=== PATIENT | male | born 1960 | race Caucasian/White ===

== ENCOUNTER 2018-05-27 12:33 | Inpatient (IN) | payer SELFPAY ==
[~2018-05-27] VITALS: Ht 175.3 cm; Wt 80.3 kg
[2018-05-27] MEDS ORDERED: LORazepam 2 MG/ML VIAL IVP ONE (13:15)
[2018-05-27] MEDS ORDERED: SODIUM CHLORIDE 0.9% 2,000 ML IV ONE (13:15)
[2018-05-27 13:16] LABS: BASOPHILS % (AUTO) 0.6 % (0.0-2.0); EOSINOPHILS % (AUTO) 0.1 % (1.0-6.0); LYMPHOCYTES # (AUTO) 1.6 K/uL (1.0-4.8); LYMPHOCYTES % (AUTO) 13.4 % (22.0-44.0); MEAN CORPUSCULAR HEMOGLOBIN 35.3 pg (26.0-34.0); MEAN CORPUSCULAR HGB CONC 34.7 G/dL (31.0-37.0); MEAN CORPUSCULAR VOLUME 102 fL (80-100); MONOCYTES # (AUTO) 0.9 K/uL (0.1-1.0); MONOCYTES % (AUTO) 7.3 % (2.0-9.0); NEUTROPHILS # (AUTO) 9.5 K/uL (1.8-7.7); NEUTROPHILS % (AUTO) 78.6 % (40.0-70.0); PLATELET COUNT (AUTO) 318 K/uL (150-450); RED BLOOD CELL COUNT(AUTO) 5.57 MIL/uL (4.50-5.90); RED CELL DISTRIBUTION WIDTH 15.1 % (11.5-14.5)
[2018-05-27 13:26] LABS: HEMATOCRIT 56.7 % (41-53); HEMOGLOBIN 19.7 g/dL (13.5-17.5)
[2018-05-27 13:52] LABS: LACTIC ACID 7.1 mmol/L (0.4-2.0)
[2018-05-27 14:47] LABS: ANION GAP 25 mmol/L (8-16); CALCIUM, TOTAL 8.5 mg/dL (8.8-10.5); CARBON DIOXIDE 14 mmol/L (22-29); CHLORIDE 99 mmol/L (98-107); GLOMERULAR FILTR. RATE CALC > 60 mL/min (>60); GLUCOSE,RANDOM 109 mg/dL (70-110); POTASSIUM 4.2 mmol/L (3.5-5.1); SODIUM SERUM 138 mmol/L (136-145); UREA NITROGEN, BLOOD 20 mg/dL (7-18)
[2018-05-27 14:50] LABS: ALANINE AMINOTRANSFERASE 115 U/L (12-78); ALBUMIN 4.2 g/dL (3.4-5.0); ALKALINE PHOSPHATASE 107 U/L (46-116); ASPARTATE AMINOTRANSFERASE 189 U/L (15-37); BILIRUBIN,TOTAL 1.1 mg/dL (0.1-1.0); LIPASE 300 U/L (73-393); TOTAL PROTEIN, SERUM 8.7 g/dL (6.4-8.2); TRIGLYCERIDES 730 mg/dL (15-150)
[2018-05-27] MEDS ORDERED: FentaNYL CITRATE-PF 100 MCG/2 ML VIAL IVP ONE (15:00)
[2018-05-27] MEDS ORDERED: 0.9% SODIUM CHLORIDE 10 ML SYRINGE IVP PRN ×2 (16:15→18:30)
[2018-05-27] MEDS ORDERED: ONDANSETRON HCL 4 MG/2 ML VIAL IVP PRN (16:15)
[2018-05-27] MEDS ORDERED: ACETAMINOPHEN 325 MG TABLET PO PRN (16:15)
[2018-05-27] MEDS ORDERED: HYDROmorphone 2 MG/ML SYRINGE IVP PRN (16:15)
[2018-05-27 16:49] LABS: APPEARANCE,URINE CLEAR (CLEAR); BILIRUBIN,URINE NEGATIVE (NEGATIVE); GLUCOSE, URINE (UA) NEGATIVE (NEGATIVE); KETONES,URINE 15 mg/dL (NEGATIVE); LEUKOCYTE ESTERASE ,URINE NEGATIVE (NEGATIVE); NITRATE,URINE NEGATIVE (NEGATIVE); OCCULT BLOOD,URINE NEGATIVE (NEGATIVE); PROTEIN,URINE POS 1+ (NEGATIVE); UROBILINOGEN,URINE 0.2 mg/dL (<=1.0)
[2018-05-27 16:53] LABS: AMPHET/METH SCREEN,URINE NEGATIVE (NEGATIVE); BARBITURATE SCREEN, URINE NEGATIVE (NEGATIVE); BENZODIAZEPINES SCREEN,URINE NEGATIVE (NEGATIVE); CANNABINOID SCREEN,URINE POSITIVE (NEGATIVE); COCAINE SCREEN,URINE NEGATIVE (NEGATIVE); METHADONE SCREEN, URINE NEGATIVE (NEGATIVE); OPIATE SCREEN,URINE POSITIVE (NEGATIVE)
[2018-05-27 16:54] LABS: PHENCYCLIDINE SCREEN,URINE NEGATIVE (NEGATIVE)
[2018-05-27 16:56] LABS: BACTERIA,URINE None Seen /HPF (None Seen); RBC,URINE 0-2 /HPF (0-2); SQUAMOUS EPITHELIAL CELL,UR Rare /LPF (None Seen); WBC,URINE 0-2 /HPF (0-5)
[2018-05-27 18:00] VITALS: BP 155/95
[2018-05-27] MEDS ORDERED: MAGNESIUM SULFATE 2 GM, MVI, ADULT NO.1 WITH VIT K 10 ML, THIAMINE HCL 100 MG, FOLIC AC... IV ONE ×5 (18:30)
[2018-05-27] MEDS: ENOXAPARIN SODIUM 40 MG/0.4 ML PF SYRINGE SQ SCH (18:30)
[2018-05-27] MEDS ORDERED: MAGNESIUM SULFATE 2 GM/WATER 50 ML IV PRN (18:45)
[2018-05-27] MEDS ORDERED: MAGNESIUM SULFATE 4 GM/WATER 100 ML IV PRN (18:45)
[2018-05-27] MEDS ORDERED: MAGNESIUM OXIDE 400 MG TABLET PO PRN (18:45)
[2018-05-27] MEDS ORDERED: POTASSIUM CHLORIDE 20 MEQ ER TABLET PO PRN (18:45)
[2018-05-27] MEDS ORDERED: POTASSIUM CHL 10 MEQ/WATER 50 ML IV PRN (18:45)
[2018-05-27 20:21] VITALS: BP 173/100
[2018-05-27] MEDS: PANTOPRAZOLE SODIUM 40 MG/VIAL IVP SCH (21:22)
[2018-05-27] MEDS: HYDROmorphone 2 MG/ML SYRINGE IVP PRN (21:22)
[2018-05-27 21:50] VITALS: BP 155/101
[2018-05-27 23:26] VITALS: BP 174/99
[2018-05-27] MEDS: AmLODIPine BESYLATE 5 MG TABLET PO SCH (23:36)
[2018-05-28] VITALS (7 sets, daily range): BP systolic 138–173; BP diastolic 90–101
[2018-05-28] MEDS: HYDROmorphone 2 MG/ML SYRINGE IVP PRN ×6 (01:35→22:19)
[2018-05-28] MEDS ORDERED: CloNIDine HCL 0.1 MG TABLET PO PRN (05:00)
[2018-05-28] MEDS: ONDANSETRON HCL 4 MG/2 ML VIAL IVP PRN (05:13)
[2018-05-28 06:51] LABS: AMYLASE 91 U/L (25-115); ANION GAP 10 mmol/L (8-16); CALCIUM, TOTAL 7.8 mg/dL (8.8-10.5); CARBON DIOXIDE 25 mmol/L (22-29); CHLORIDE 101 mmol/L (98-107); GLOMERULAR FILTR. RATE CALC > 60 mL/min (>60); GLUCOSE,RANDOM 118 mg/dL (70-110); POTASSIUM 3.6 mmol/L (3.5-5.1); SODIUM SERUM 136 mmol/L (136-145); UREA NITROGEN, BLOOD 11 mg/dL (7-18)
[2018-05-28 07:56] LABS: BASOPHILS % (AUTO) 0.5 % (0.0-2.0); EOSINOPHILS % (AUTO) 0.2 % (1.0-6.0); HEMATOCRIT 49.9 % (41-53); HEMOGLOBIN 17.4 g/dL (13.5-17.5); LYMPHOCYTES # (AUTO) 0.8 K/uL (1.0-4.8); LYMPHOCYTES % (AUTO) 8.8 % (22.0-44.0); MEAN CORPUSCULAR HEMOGLOBIN 35.6 pg (26.0-34.0); MEAN CORPUSCULAR HGB CONC 34.8 G/dL (31.0-37.0); MEAN CORPUSCULAR VOLUME 102 fL (80-100); MONOCYTES # (AUTO) 1.1 K/uL (0.1-1.0); MONOCYTES % (AUTO) 11.2 % (2.0-9.0); NEUTROPHILS # (AUTO) 7.5 K/uL (1.8-7.7); NEUTROPHILS % (AUTO) 79.3 % (40.0-70.0); PLATELET COUNT (AUTO) 218 K/uL (150-450); RED BLOOD CELL COUNT(AUTO) 4.88 MIL/uL (4.50-5.90); RED CELL DISTRIBUTION WIDTH 14.5 % (11.5-14.5)
[2018-05-28] MEDS: AmLODIPine BESYLATE 5 MG TABLET PO SCH (08:22)
[2018-05-28] MEDS: PANTOPRAZOLE SODIUM 40 MG/VIAL IVP SCH ×2 (08:22→20:29)
[2018-05-28] MEDS: ENOXAPARIN SODIUM 40 MG/0.4 ML PF SYRINGE SQ SCH (08:23)
[2018-05-28] MEDS ORDERED: SODIUM CHLORIDE 0.9% 250 ML IV ONE (09:22)
[2018-05-28] MEDS: MAGNESIUM SULFATE 2 GM, MVI, ADULT NO.1 WITH VIT K 10 ML, THIAMINE HCL 100 MG, FOLIC AC... IV SCH ×5 (11:10)
[2018-05-29] VITALS (7 sets, daily range): BP systolic 128–150; BP diastolic 89–95
[2018-05-29] MEDS: MAGNESIUM SULFATE 2 GM, MVI, ADULT NO.1 WITH VIT K 10 ML, THIAMINE HCL 100 MG, FOLIC AC... IV SCH ×5 (02:17)
[2018-05-29] MEDS: HYDROmorphone 2 MG/ML SYRINGE IVP PRN ×6 (02:18→23:14)
[2018-05-29] MEDS: ENOXAPARIN SODIUM 40 MG/0.4 ML PF SYRINGE SQ SCH ×2 (09:00→09:31)
[2018-05-29] MEDS: AmLODIPine BESYLATE 5 MG TABLET PO SCH (09:31)
[2018-05-29] MEDS: ONDANSETRON HCL 4 MG/2 ML VIAL IVP PRN (09:31)
[2018-05-29] MEDS: PANTOPRAZOLE SODIUM 40 MG/VIAL IVP SCH ×2 (09:32→20:23)
[2018-05-29] MEDS: HYDROCODONE/ACETAMINOPHEN 10-325 MG TABLET PO PRN ×2 (12:01→22:09)
[2018-05-29] MEDS ORDERED: LORazepam 2 MG/ML VIAL IVP ONE (16:15)
[2018-05-30 04:56] VITALS: BP 128/91
[2018-05-30] MEDS: HYDROmorphone 2 MG/ML SYRINGE IVP PRN ×3 (05:17→11:20)
[2018-05-30 06:07] LABS: BASOPHILS % (AUTO) 0.5 % (0.0-2.0); EOSINOPHILS % (AUTO) 1.7 % (1.0-6.0); HEMATOCRIT 46.3 % (41-53); HEMOGLOBIN 16.3 g/dL (13.5-17.5); LYMPHOCYTES # (AUTO) 1.3 K/uL (1.0-4.8); MEAN CORPUSCULAR HEMOGLOBIN 35.7 pg (26.0-34.0); MEAN CORPUSCULAR HGB CONC 35.3 G/dL (31.0-37.0); MEAN CORPUSCULAR VOLUME 101 fL (80-100); MONOCYTES # (AUTO) 0.9 K/uL (0.1-1.0); MONOCYTES % (AUTO) 12.6 % (2.0-9.0); NEUTROPHILS # (AUTO) 4.6 K/uL (1.8-7.7); NEUTROPHILS % (AUTO) 66.2 % (40.0-70.0); PLATELET COUNT (AUTO) 197 K/uL (150-450); RED BLOOD CELL COUNT(AUTO) 4.58 MIL/uL (4.50-5.90); RED CELL DISTRIBUTION WIDTH 14.5 % (11.5-14.5)
[2018-05-30 06:13] LABS: INR 0.9 (0.9-1.1); PROTHROMBIN TIME 9.7 SEC (9.4-11.6)
[2018-05-30 06:53] LABS: ALANINE AMINOTRANSFERASE 42 U/L (12-78); ALBUMIN 3.1 g/dL (3.4-5.0); ALKALINE PHOSPHATASE 97 U/L (46-116); ANION GAP 9 mmol/L (8-16); ASPARTATE AMINOTRANSFERASE 32 U/L (15-37); BILIRUBIN,TOTAL 2.9 mg/dL (0.1-1.0); CALCIUM, TOTAL 8.3 mg/dL (8.8-10.5); CARBON DIOXIDE 25 mmol/L (22-29); CHLORIDE 96 mmol/L (98-107); CREATININE 0.68 mg/dL (0.60-1.30); GLOMERULAR FILTR. RATE CALC > 60 mL/min (>60); GLUCOSE,RANDOM 95 mg/dL (70-110); POTASSIUM 3.6 mmol/L (3.5-5.1); SODIUM SERUM 130 mmol/L (136-145); TOTAL PROTEIN, SERUM 7.5 g/dL (6.4-8.2); UREA NITROGEN, BLOOD 8 mg/dL (7-18)
[2018-05-30 07:40] VITALS: BP_SYST 137; BP_DIAS 9; BP_DIAS 96
[2018-05-30] MEDS ORDERED: RINGERS SOLUTION,LACTATED 1,000 ML IV ONE (08:00)
[2018-05-30] MEDS: PANTOPRAZOLE SODIUM 40 MG/VIAL IVP SCH ×2 (09:00→20:08)
[2018-05-30] MEDS: ENOXAPARIN SODIUM 40 MG/0.4 ML PF SYRINGE SQ SCH (09:00)
[2018-05-30] MEDS: AmLODIPine BESYLATE 5 MG TABLET PO SCH (09:00)
[2018-05-30] MEDS ORDERED: BUPIVACAINE 0.25%/EPI 1:200,000/PF 10 ML VIAL ONE (09:18)
[2018-05-30] MEDS ORDERED: SODIUM CL IRRIG SOLN BAG 3,000 ML IRRIG ONE (09:19)
[2018-05-30] MEDS ORDERED: IOHEXOL 240 MG/ML 20 ML VIAL ONE ×2 (09:20)
[2018-05-30] MEDS ORDERED: ACETAMINOPHEN 1000 MG/ISO-OSM 100 ML IV ONE (09:27)
[2018-05-30] MEDS ORDERED: LIDOCAINE/PF 2% 5 ML VIAL ONE (09:28)
[2018-05-30] MEDS ORDERED: KETAMINE HCL 50 MG/ML 10 ML VIAL ONE (09:28)
[2018-05-30] MEDS ORDERED: CLINDAMYCIN PHOS 150 MG/ML 4 ML VIAL ONE (09:53)
[2018-05-30] MEDS ORDERED: SODIUM CHLORIDE 0.9% 0 ML ONE (09:53)
[2018-05-30] MEDS: FentaNYL CITRATE-PF 100 MCG/2 ML VIAL IVP PRN ×2 (11:00→11:05)
[2018-05-30] MEDS ORDERED: MEPERIDINE-PF 25 MG/ML VIAL ONE (11:01)
[2018-05-30] MEDS ORDERED: FentaNYL CITRATE-PF 100 MCG/2 ML VIAL ONE (11:01)
[2018-05-30] MEDS ORDERED: MEPERIDINE-PF 25 MG/ML VIAL IVP PRN (11:15)
[2018-05-30] MEDS ORDERED: HYDROmorphone 2 MG/ML SYRINGE IVP PRN (11:15)
[2018-05-30] MEDS ORDERED: OxyCODONE HCL/ACETAMINOPHEN 10-325 MG TABLET PO PRN (11:15)
[2018-05-30] MEDS ORDERED: PROPOFOL 1% 20 ML VIAL IVP ONE (12:00)
[2018-05-30] MEDS ORDERED: KETOROLAC TROMETHAMINE 60 MG/2 ML VIAL IM ONE (12:00)
[2018-05-30] MEDS ORDERED: DEXAMETHASONE SOD PHOS 4 MG/ML VIAL IVP ONE (12:00)
[2018-05-30] MEDS ORDERED: ROCURONIUM BROMIDE 10 MG/ML 5 ML VIAL IVP ONE (12:00)
[2018-05-30] MEDS ORDERED: ONDANSETRON HCL 4 MG/2 ML VIAL IVP ONE (12:00)
[2018-05-30] MEDS ORDERED: MIDAZOLAM HCL 2 MG/2 ML VIAL IVP ONE (12:00)
[2018-05-30] MEDS ORDERED: LIDOCAINE/PF 2% 5 ML VIAL INJ ONE (12:00)
[2018-05-30] MEDS ORDERED: GLYCOPYRROLATE 0.2 MG/ML VIAL IM ONE (12:00)
[2018-05-30] MEDS ORDERED: NEOSTIGMINE METHYLSULFATE 1 MG/ML 10 ML VIAL IVP ONE (12:00)
[2018-05-30] MEDS ORDERED: SUCCINYLCHOLINE CHLORIDE 20 MG/ML 10 ML VIAL IVP ONE (12:00)
[2018-05-30] MEDS: ACETAMINOPHEN 500 MG TABLET PO SCH ×3 (12:32→23:41)
[2018-05-30] MEDS: KETOROLAC TROMETHAMINE 15 MG/ML VIAL IVP SCH ×3 (12:32→23:41)
[2018-05-30 16:23] VITALS: BP 129/81
[2018-05-30 19:33] VITALS: BP 144/83
[2018-05-30 23:41] VITALS: BP 144/95
[2018-05-31 06:01] VITALS: BP 149/90
[2018-05-31] MEDS: KETOROLAC TROMETHAMINE 15 MG/ML VIAL IVP SCH ×2 (06:04→12:30)
[2018-05-31] MEDS: ACETAMINOPHEN 500 MG TABLET PO SCH ×2 (06:05→11:15)
[2018-05-31 06:31] LABS: BASOPHILS % (AUTO) 0.2 % (0.0-2.0); EOSINOPHILS % (AUTO) 0.1 % (1.0-6.0); HEMATOCRIT 43.3 % (41-53); HEMOGLOBIN 15.3 g/dL (13.5-17.5); LYMPHOCYTES # (AUTO) 0.9 K/uL (1.0-4.8); LYMPHOCYTES % (AUTO) 11.3 % (22.0-44.0); MEAN CORPUSCULAR HEMOGLOBIN 36.4 pg (26.0-34.0); MEAN CORPUSCULAR HGB CONC 35.3 G/dL (31.0-37.0); MEAN CORPUSCULAR VOLUME 103 fL (80-100); MONOCYTES % (AUTO) 13.6 % (2.0-9.0); NEUTROPHILS # (AUTO) 5.6 K/uL (1.8-7.7); NEUTROPHILS % (AUTO) 74.8 % (40.0-70.0); PLATELET COUNT (AUTO) 196 K/uL (150-450); RED CELL DISTRIBUTION WIDTH 14.5 % (11.5-14.5)
[2018-05-31 06:50] LABS: ALANINE AMINOTRANSFERASE 43 U/L (12-78); ALBUMIN 3.1 g/dL (3.4-5.0); ALKALINE PHOSPHATASE 104 U/L (46-116); ANION GAP 5 mmol/L (8-16); ASPARTATE AMINOTRANSFERASE 33 U/L (15-37); BILIRUBIN,TOTAL 1.5 mg/dL (0.1-1.0); CALCIUM, TOTAL 8.4 mg/dL (8.8-10.5); CARBON DIOXIDE 28 mmol/L (22-29); CHLORIDE 97 mmol/L (98-107); CREATININE 0.86 mg/dL (0.60-1.30); GLOMERULAR FILTR. RATE CALC > 60 mL/min (>60); GLUCOSE,RANDOM 149 mg/dL (70-110); LIPASE 505 U/L (73-393); SODIUM SERUM 130 mmol/L (136-145); TOTAL PROTEIN, SERUM 7.1 g/dL (6.4-8.2); UREA NITROGEN, BLOOD 11 mg/dL (7-18)
[2018-05-31 08:08] VITALS: BP 149/87
[2018-05-31] MEDS: PANTOPRAZOLE SODIUM 40 MG/VIAL IVP SCH (09:08)
[2018-05-31] MEDS: AmLODIPine BESYLATE 5 MG TABLET PO SCH (09:08)
[2018-05-31] MEDS: ENOXAPARIN SODIUM 40 MG/0.4 ML PF SYRINGE SQ SCH (09:09)
[2018-05-31] MEDS ORDERED: HYDR-4061 PO (10:12)
[2018-05-31 12:00] VITALS: BP 155/95
[2018-05-31 15:37] VITALS: BP 150/91
== END 2018-05-31 16:00 | disposition home or self-care (01) | DRG 418 ==
LOC: EMS 12:34 → 6N 17:08
PROVIDERS: ADMIT Internal Medicine; ATTEND Internal Medicine
PROC: BF181ZZ Fluoroscopy of Pancreatic Ducts using Low Osmolar Contrast (ICD-10-PCS; 2018-05-30)
PROC: 0FT44ZZ Resection of Gallbladder, Percutaneous Endoscopic Approach (ICD-10-PCS; principal; 2018-05-30 09:00)
DX: K85.10 Biliary acute pancreatitis without necrosis or infection (principal); K86.3 Pseudocyst of pancreas; F10.10 Alcohol abuse, uncomplicated; Z88.0 Allergy status to penicillin; Z88.5 Allergy status to narcotic agent; E78.1 Pure hyperglyceridemia; Y90.9 Presence of alcohol in blood, level not specified; K29.20 Alcoholic gastritis without bleeding; F40.240 Claustrophobia; K66.0 Peritoneal adhesions (postprocedural) (postinfection)
CPT/HCPCS: 74176; 76700; 82247; 82248; 83605; 83735; 84478; 86850; 86900; 86901; 88304; 93005; 96361; 96374; 96375; C9113; G0238; G0378; G0480; J0131; J0330; J1100; J1170; J1650; J1885; J2060; J2175; J2250; J2405; J2704; J3010; J3411; J3475; J3490; J7030; J7050; J7120; Q9966

== ENCOUNTER 2021-02-15 09:18 | Inpatient (IN) | payer MEDICAID, OTHER ==
[~2021-02-15] VITALS: Ht 172.7 cm; Wt 75.7 kg
[2021-02-15] MEDS ORDERED: OCTREOTIDE ACETATE 100 MCG/ML VIAL IVP ONE (09:30)
[2021-02-15] MEDS ORDERED: PANTOPRAZOLE SODIUM 40 MG/VIAL IVP ONE (09:30)
[2021-02-15] MEDS ORDERED: LEVOFLOXACIN 750 MG/D5% WATER 150 ML IV ONE (09:30)
[2021-02-15] MEDS ORDERED: MORPHINE SULFATE 2 MG/ML SYRINGE IVP ONE (09:45)
[2021-02-15 09:55] LABS: BASOPHILS % (AUTO) 1.1 % (0.0-2.0); EOSINOPHILS % (AUTO) 0.6 % (1.0-6.0); HEMATOCRIT 28.6 % (41-53); HEMOGLOBIN 9.7 g/dL (13.5-17.5); LYMPHOCYTES # (AUTO) 3.5 K/uL (1.0-4.8); LYMPHOCYTES % (AUTO) 23.4 % (22.0-44.0); MEAN CORPUSCULAR HEMOGLOBIN 38.9 pg (26.0-34.0); MEAN CORPUSCULAR HGB CONC 33.9 G/dL (31.0-37.0); MEAN CORPUSCULAR VOLUME 115 fL (80-100); MONOCYTES # (AUTO) 1.3 K/uL (0.1-1.0); NEUTROPHILS # (AUTO) 9.8 K/uL (1.8-7.7); NEUTROPHILS % (AUTO) 65.9 % (40.0-70.0); PLATELET COUNT (AUTO) 206 K/uL (150-450); RED CELL DISTRIBUTION WIDTH 15.5 % (11.5-14.5)
[2021-02-15] MEDS: OCTREOTIDE ACETATE 500 MCG in DEXTROSE 5%-WATER 97.5 ML IV SCH ×2 (09:58→20:18)
[2021-02-15 10:10] LABS: INR 1.5 (0.9-1.1); PROTHROMBIN TIME 15.5 SEC (9.4-11.6)
[2021-02-15 10:11] LABS: ANION GAP 12 mmol/L (8-16); CALCIUM, TOTAL 8.4 mg/dL (8.8-10.5); CARBON DIOXIDE 26 mmol/L (22-29); CHLORIDE 102 mmol/L (98-107); CREATININE 0.64 mg/dL (0.60-1.30); GLOMERULAR FILTR. RATE CALC > 60 mL/min (>60); GLUCOSE,RANDOM 142 mg/dL (70-110); POTASSIUM 4.1 mmol/L (3.5-5.1); SODIUM SERUM 140 mmol/L (136-145); UREA NITROGEN, BLOOD 16 mg/dL (7-18)
[2021-02-15 10:17] LABS: ALANINE AMINOTRANSFERASE 26 U/L (12-78); ALBUMIN 2.3 g/dL (3.4-5.0); ALKALINE PHOSPHATASE 272 U/L (46-116); ASPARTATE AMINOTRANSFERASE 175 U/L (15-37); BILIRUBIN,TOTAL 6.8 mg/dL (0.1-1.0); CREATINE KINASE, TOTAL ONLY 23 U/L (39-308); LIPASE 64 U/L (73-393); PHOSPHORUS 3.3 mg/dL (2.5-4.9); TOTAL PROTEIN, SERUM 9.4 g/dL (6.4-8.2)
[2021-02-15 10:22] LABS: TROPONIN I < 0.02 ng/mL (0.00-0.05)
[2021-02-15 10:23] LABS: AMMONIA < 10 umol/L (11-32)
[2021-02-15 10:27] LABS: B-TYPE NATRIURETIC PEPTIDE 74 pg/mL (0-100)
[2021-02-15] MEDS: PANTOPRAZOLE SODIUM 80 MG in SODIUM CHLORIDE 0.9% 100 ML IV SCH ×2 (10:27→20:18)
[2021-02-15] MEDS ORDERED: ALBUTEROL SULFATE 2.5 MG/0.5 ML NEB SOLUTION NEB PRN (11:30)
[2021-02-15] MEDS ORDERED: ACETAMINOPHEN 325 MG TABLET PO PRN (11:30)
[2021-02-15] MEDS ORDERED: ONDANSETRON HCL 4 MG/2 ML VIAL IVP PRN (11:30)
[2021-02-15] MEDS ORDERED: 0.9% SODIUM CHLORIDE 10 ML SYRINGE IVP PRN (11:30)
[2021-02-15] MEDS ORDERED: IPRATROPIUM BROMIDE 0.5 MG/2.5 ML NEB SOLUTION NEB PRN (11:30)
[2021-02-15] MEDS: 1: MAGNESIUM SULFATE 2 GM, MVI, ADULT NO.1 WITH VIT K 10 ML, THIAMINE 100 MG, FOLIC ACID IV SCH ×5 (12:40)
[2021-02-15 13:53] LABS: COVID AG,FIA SOURCE NASOPHARYNGEAL
[2021-02-15 14:19] LABS: HEMATOCRIT 24.7 % (41-53); HEMOGLOBIN 8.6 g/dL (13.5-17.5)
[2021-02-15 14:21] LABS: APPEARANCE,URINE CLOUDY (CLEAR); GLUCOSE, URINE (UA) NEGATIVE (NEGATIVE); KETONES,URINE TRACE mg/dL (NEGATIVE); LEUKOCYTE ESTERASE ,URINE SMALL (NEGATIVE); OCCULT BLOOD,URINE NEGATIVE (NEGATIVE); PH,URINE 5.5 (5.0-8.0); PROTEIN,URINE TRACE (NEGATIVE)
[2021-02-15 14:26] LABS: AMPHET/METH SCREEN,URINE NEGATIVE (NEGATIVE); BARBITURATE SCREEN, URINE NEGATIVE (NEGATIVE); BENZODIAZEPINES SCREEN,URINE NEGATIVE (NEGATIVE); CANNABINOID SCREEN,URINE NEGATIVE (NEGATIVE); COCAINE SCREEN,URINE NEGATIVE (NEGATIVE); METHADONE SCREEN, URINE NEGATIVE (NEGATIVE); OPIATE SCREEN,URINE POSITIVE (NEGATIVE)
[2021-02-15 14:30] LABS: PHENCYCLIDINE SCREEN,URINE NEGATIVE (NEGATIVE)
[2021-02-15 15:10] LABS: BILIRUBIN,URINE PRELIM. POSITIVE (NEGATIVE)
[2021-02-15 15:28] LABS: BACTERIA,URINE Few /HPF (None Seen); NITRATE,URINE NEGATIVE (NEGATIVE); RBC,URINE 0-2 /HPF (0-2); SQUAMOUS EPITHELIAL CELL,UR Rare /LPF (None Seen)
[2021-02-15 20:10] LABS: HEMOGLOBIN 8.1 g/dL (13.5-17.5)
[2021-02-15] MEDS: LORazepam 2 MG/ML VIAL IVP PRN (20:53)
[2021-02-15] MEDS: CefTRIAXone 1 GM/DEXTROSE 50 ML IV SCH (21:17)
[2021-02-15] MEDS ORDERED: PHYTONADIONE 10 MG/1 ML AMP SQ ONE (22:15)
[2021-02-15 23:43] VITALS: BP 134/78
[2021-02-15] MEDS ORDERED: DEXTROSE 5%-0.45% SODIUM CHL 1,000 ML IV PRN (23:55)
[2021-02-16] VITALS (13 sets, daily range): BP systolic 112–141; BP diastolic 68–83
[2021-02-16] MEDS ORDERED: SODIUM CHLORIDE 0.9% 250 ML IV ONE (03:06)
[2021-02-16] MEDS: LORazepam 2 MG/ML VIAL IVP PRN (03:53)
[2021-02-16] MEDS: PANTOPRAZOLE SODIUM 80 MG in SODIUM CHLORIDE 0.9% 100 ML IV SCH ×2 (06:06→17:02)
[2021-02-16] MEDS: OCTREOTIDE ACETATE 500 MCG in DEXTROSE 5%-WATER 97.5 ML IV SCH ×2 (06:07→17:02)
[2021-02-16] MEDS ORDERED: SODIUM CHLORIDE 0.9% 1,000 ML ONE ×3 (06:08→21:12)
[2021-02-16 06:52] LABS: BASOPHILS % (AUTO) 1.2 % (0.0-2.0); HEMATOCRIT 21.8 % (41-53); HEMOGLOBIN 7.6 g/dL (13.5-17.5); LYMPHOCYTES % (AUTO) 18.7 % (22.0-44.0); MEAN CORPUSCULAR HEMOGLOBIN 40.2 pg (26.0-34.0); MEAN CORPUSCULAR HGB CONC 34.9 G/dL (31.0-37.0); MEAN CORPUSCULAR VOLUME 115 fL (80-100); MONOCYTES % (AUTO) 9.1 % (2.0-9.0); NEUTROPHILS # (AUTO) 7.4 K/uL (1.8-7.7); PLATELET COUNT (AUTO) 163 K/uL (150-450); RED BLOOD CELL COUNT(AUTO) 1.89 MIL/uL (4.50-5.90); RED CELL DISTRIBUTION WIDTH 15.5 % (11.5-14.5)
[2021-02-16 07:13] LABS: ALANINE AMINOTRANSFERASE 22 U/L (12-78); ALBUMIN 1.9 g/dL (3.4-5.0); ALKALINE PHOSPHATASE 203 U/L (46-116); ANION GAP 6 mmol/L (8-16); ASPARTATE AMINOTRANSFERASE 141 U/L (15-37); CALCIUM, TOTAL 7.6 mg/dL (8.8-10.5); CARBON DIOXIDE 27 mmol/L (22-29); CHLORIDE 104 mmol/L (98-107); CREATININE 0.78 mg/dL (0.60-1.30); FREE T4 (FREE THYROXINE) 1.41 ng/dL (0.76-1.46); GLOMERULAR FILTR. RATE CALC > 60 mL/min (>60); GLUCOSE,RANDOM 145 mg/dL (70-110); POTASSIUM 4.4 mmol/L (3.5-5.1); SODIUM SERUM 137 mmol/L (136-145); THYROID STIMULATING HORMONE 0.95 uIU/mL (0.36-3.74); TOTAL PROTEIN, SERUM 7.7 g/dL (6.4-8.2); UREA NITROGEN, BLOOD 23 mg/dL (7-18)
[2021-02-16] MEDS ORDERED: PROPOFOL 1% 20 ML VIAL IVP ONE (12:00)
[2021-02-16] MEDS: 1: MAGNESIUM SULFATE 2 GM, MVI, ADULT NO.1 WITH VIT K 10 ML, THIAMINE 100 MG, FOLIC ACID IV SCH ×5 (14:23)
[2021-02-16] MEDS ORDERED: EPINEPHrine 1:10,000 [1 MG/10 ML] SYRINGE ONE (14:29)
[2021-02-16 15:43] LABS: HEMATOCRIT 22.5 % (41-53); HEMOGLOBIN 7.8 g/dL (13.5-17.5)
[2021-02-16 16:06] LABS: INR 1.6 (0.9-1.1); PROTHROMBIN TIME 16.8 SEC (9.4-11.6)
[2021-02-16 20:28] LABS: HEMATOCRIT 21.2 % (41-53); HEMOGLOBIN 7.3 g/dL (13.5-17.5)
[2021-02-16] MEDS: CefTRIAXone 1 GM/DEXTROSE 50 ML IV SCH (21:10)
[2021-02-16] MEDS: TraMADol HCL 50 MG TABLET PO PRN (22:51)
[2021-02-16] MEDS: MELATONIN 5 MG TABLET PO PRN (22:51)
[2021-02-17 00:40] VITALS: BP 132/82
[2021-02-17] MEDS: OCTREOTIDE ACETATE 500 MCG in DEXTROSE 5%-WATER 97.5 ML IV SCH ×4 (01:35→22:18)
[2021-02-17] MEDS: PANTOPRAZOLE SODIUM 80 MG in SODIUM CHLORIDE 0.9% 100 ML IV SCH ×4 (01:35→22:18)
[2021-02-17 03:14] LABS: HEMATOCRIT 21.3 % (41-53); HEMOGLOBIN 7.4 g/dL (13.5-17.5)
[2021-02-17 03:39] LABS: HEMOGLOBIN A1C 4.9 % (3.8-5.6)
[2021-02-17 03:40] LABS: CHOL/HDL RATIO 7.4 (4.2-7.3)
[2021-02-17] MEDS: 1: MAGNESIUM SULFATE 2 GM, MVI, ADULT NO.1 WITH VIT K 10 ML, THIAMINE 100 MG, FOLIC ACID IV SCH ×10 (04:20→17:43)
[2021-02-17 04:40] VITALS: BP 123/65
[2021-02-17 08:15] VITALS: BP 125/73
[2021-02-17 11:36] LABS: HEMATOCRIT 21.8 % (41-53); HEMOGLOBIN 7.6 g/dL (13.5-17.5)
[2021-02-17 11:38] VITALS: BP 123/72
[2021-02-17 16:43] LABS: HEMATOCRIT 22.3 % (41-53); HEMOGLOBIN 7.6 g/dL (13.5-17.5)
[2021-02-17] MEDS: MELATONIN 5 MG TABLET PO PRN (20:13)
[2021-02-17] MEDS: TraMADol HCL 50 MG TABLET PO PRN (20:13)
[2021-02-17] MEDS: CefTRIAXone 1 GM/DEXTROSE 50 ML IV SCH (20:14)
[2021-02-17 20:27] VITALS: BP 133/88
[2021-02-17 23:35] LABS: HEMATOCRIT 20.8 % (41-53)
[2021-02-17 23:58] VITALS: BP 110/64
[2021-02-18 04:33] VITALS: BP 122/73
[2021-02-18] MEDS: 1: MAGNESIUM SULFATE 2 GM, MVI, ADULT NO.1 WITH VIT K 10 ML, THIAMINE 100 MG, FOLIC ACID IV SCH ×5 (05:51)
[2021-02-18] MEDS: OCTREOTIDE ACETATE 500 MCG in DEXTROSE 5%-WATER 97.5 ML IV SCH (07:56)
[2021-02-18 08:00] VITALS: BP 121/76
[2021-02-18 08:51] LABS: ANION GAP 8 mmol/L (8-16); CALCIUM, TOTAL 7.4 mg/dL (8.8-10.5); CARBON DIOXIDE 24 mmol/L (22-29); CHLORIDE 102 mmol/L (98-107); CREATININE 0.54 mg/dL (0.60-1.30); GLOMERULAR FILTR. RATE CALC > 60 mL/min (>60); GLUCOSE,RANDOM 127 mg/dL (70-110); POTASSIUM 3.8 mmol/L (3.5-5.1); SODIUM SERUM 134 mmol/L (136-145); UREA NITROGEN, BLOOD 9 mg/dL (7-18)
[2021-02-18 08:56] LABS: BASOPHILS % (AUTO) 1.2 % (0.0-2.0); EOSINOPHILS % (AUTO) 1.5 % (1.0-6.0); HEMATOCRIT 21.1 % (41-53); HEMOGLOBIN 7.2 g/dL (13.5-17.5); LYMPHOCYTES # (AUTO) 2.1 K/uL (1.0-4.8); LYMPHOCYTES % (AUTO) 18.1 % (22.0-44.0); MEAN CORPUSCULAR HEMOGLOBIN 39.7 pg (26.0-34.0); MEAN CORPUSCULAR HGB CONC 34.2 G/dL (31.0-37.0); MEAN CORPUSCULAR VOLUME 116 fL (80-100); MONOCYTES % (AUTO) 8.7 % (2.0-9.0); NEUTROPHILS # (AUTO) 8.2 K/uL (1.8-7.7); NEUTROPHILS % (AUTO) 70.5 % (40.0-70.0); PLATELET COUNT (AUTO) 145 K/uL (150-450); RED BLOOD CELL COUNT(AUTO) 1.82 MIL/uL (4.50-5.90); RED CELL DISTRIBUTION WIDTH 15.6 % (11.5-14.5)
[2021-02-18 08:58] LABS: INR 1.5 (0.9-1.1); PROTHROMBIN TIME 15.5 SEC (9.4-11.6)
[2021-02-18] MEDS ORDERED: PANTOPRAZOLE SODIUM 40 MG DR TABLET PO SCH (09:00)
[2021-02-18] MEDS: PANTOPRAZOLE SODIUM 80 MG in SODIUM CHLORIDE 0.9% 100 ML IV SCH (09:01)
[2021-02-18] MEDS ORDERED: PANT-31 PO (11:25)
[2021-02-18 12:27] VITALS: BP 128/80
== END 2021-02-18 13:20 | disposition home or self-care (01) | DRG 280 ==
LOC: EMS 09:21 → 5S 02-16 01:20
PROVIDERS: ADMIT Internal Medicine; ATTEND Internal Medicine
PROC: 30233L1 Transfusion of Nonautologous Fresh Plasma into Peripheral Vein, Percutaneous Approach (ICD-10-PCS; 2021-02-16)
PROC: 30233K1 Transfusion of Nonautologous Frozen Plasma into Peripheral Vein, Percutaneous Approach (ICD-10-PCS; 2021-02-16)
PROC: 0DB98ZX Excision of Duodenum, Via Natural or Artificial Opening Endoscopic, Diagnostic (ICD-10-PCS; principal; 2021-02-16 16:00)
DX: K70.30 Alcoholic cirrhosis of liver without ascites (principal); K70.40 Alcoholic hepatic failure without coma; K76.6 Portal hypertension; D62 Acute posthemorrhagic anemia; I85.10 Secondary esophageal varices without bleeding; R65.10 Systemic inflammatory response syndrome (SIRS) of non-infectious origin without acute organ dysfunction; K92.2 Gastrointestinal hemorrhage, unspecified; Z20.822 Contact with and (suspected) exposure to COVID-19; K31.89 Other diseases of stomach and duodenum; R79.89 Other specified abnormal findings of blood chemistry; F10.20 Alcohol dependence, uncomplicated; Y90.9 Presence of alcohol in blood, level not specified; R55 Syncope and collapse; Z88.0 Allergy status to penicillin; Z88.6 Allergy status to analgesic agent; Z90.49 Acquired absence of other specified parts of digestive tract
CPT/HCPCS: 71045; 76700; 80048; 80053; 80061; 81001; 82140; 82550; 83036; 83690; 83735; 83880; 84100; 84145; 84439; 84443; 84484; 85014; 85018; 85025; 85610; 85730; 86900; 86901; 86927; 87081; 87086; 88305; 93005; 99291; A9575; C9113; G0480; J0171; J0696; J1956; J2060; J2270; J2354; J2704; J3411; J3430; J3475; J3490; J7030; J7050; J7060; P9017; 36415-L1; 36415-TC

== ENCOUNTER 2021-03-21 06:58 | Emergency (ER) | payer OTHER ==
[~2021-03-21] VITALS: Ht 175.3 cm; Wt 72.7 kg
[~2021-03-21 06:58] MED LIST: PANT-31 PO
[2021-03-21] MEDS ORDERED: HYDROCODONE/ACETAMINOPHEN 5-325 MG TABLET PO ONE (08:00)
[2021-03-21 08:11] VITALS: BP 105/62
== END 2021-03-21 08:53 | disposition home or self-care (01) ==
LOC: EMS 07:00
DX: S90.32XA Contusion of left foot, initial encounter (principal); Z88.0 Allergy status to penicillin; Z88.6 Allergy status to analgesic agent; X58.XXXA Exposure to other specified factors, initial encounter; Y93.89 Activity, other specified; Y92.89 Other specified places as the place of occurrence of the external cause; Y99.8 Other external cause status
CPT/HCPCS: 99283

== ENCOUNTER 2021-04-07 16:35 | Emergency (ER) | payer OTHER ==
[~2021-04-07] VITALS: Ht 175.3 cm; Wt 77.3 kg
[2021-04-07] MEDS ORDERED: HYDROCODONE/ACETAMINOPHEN 5-325 MG TABLET PO ONE (21:00)
[2021-04-07] MEDS ORDERED: SULFAMETHOX/TRIMETH DS 800-160 MG/TABLET PO ONE (21:00)
[2021-04-07] MEDS ORDERED: CEPHALEXIN MONOHYDRATE 500 MG CAPSULE PO ONE (21:00)
[2021-04-07] MEDS ORDERED: LIDOCAINE 1% 10 ML VIAL ID ONE (21:00)
[2021-04-07 23:30] VITALS: BP 104/53
== END 2021-04-08 00:04 | disposition home or self-care (01) ==
LOC: EMS 16:35
DX: S90.32XA Contusion of left foot, initial encounter (principal); L02.612 Cutaneous abscess of left foot; Z88.0 Allergy status to penicillin; Z88.6 Allergy status to analgesic agent; X58.XXXA Exposure to other specified factors, initial encounter; Y93.89 Activity, other specified; Y92.89 Other specified places as the place of occurrence of the external cause; Y99.8 Other external cause status
CPT/HCPCS: 10060; 73630; 99284; J3490

== ENCOUNTER 2021-04-27 16:05 | Inpatient (IN) | payer OTHER ==
[~2021-04-27] VITALS: Ht 175.3 cm; Wt 84.5 kg
[2021-04-27 17:42] LABS: BASOPHILS % (AUTO) 0.9 % (0.0-2.0); EOSINOPHILS % (AUTO) 3.3 % (1.0-6.0); LYMPHOCYTES # (AUTO) 2.5 K/uL (1.0-4.8); LYMPHOCYTES % (AUTO) 22.7 % (22.0-44.0); MEAN CORPUSCULAR HEMOGLOBIN 34.6 pg (26.0-34.0); MEAN CORPUSCULAR HGB CONC 33.3 G/dL (31.0-37.0); MEAN CORPUSCULAR VOLUME 104 fL (80-100); MONOCYTES # (AUTO) 1.7 K/uL (0.1-1.0); MONOCYTES % (AUTO) 15.2 % (2.0-9.0); NEUTROPHILS # (AUTO) 6.5 K/uL (1.8-7.7); NEUTROPHILS % (AUTO) 57.9 % (40.0-70.0); PLATELET COUNT (AUTO) 323 K/uL (150-450); RED BLOOD CELL COUNT(AUTO) 1.82 MIL/uL (4.50-5.90); RED CELL DISTRIBUTION WIDTH 18.7 % (11.5-14.5)
[2021-04-27 17:45] LABS: HEMATOCRIT 18.9 % (41-53); HEMOGLOBIN 6.3 g/dL (13.5-17.5)
[2021-04-27 17:51] LABS: ANION GAP 17 mmol/L (8-16); CALCIUM, TOTAL 7.7 mg/dL (8.8-10.5); CARBON DIOXIDE 17 mmol/L (22-29); CHLORIDE 103 mmol/L (98-107); CREATININE 3.16 mg/dL (0.60-1.30); GLOMERULAR FILTR. RATE CALC 20 mL/min (>60); GLUCOSE,RANDOM 147 mg/dL (70-110); SODIUM SERUM 137 mmol/L (136-145); UREA NITROGEN, BLOOD 48 mg/dL (7-18)
[2021-04-27 17:53] LABS: INR 1.8 (0.9-1.1); PROTHROMBIN TIME 18.6 SEC (9.4-11.6)
[2021-04-27 17:57] LABS: ALANINE AMINOTRANSFERASE 38 U/L (12-78); ALBUMIN 2.1 g/dL (3.4-5.0); ALKALINE PHOSPHATASE 177 U/L (46-116); ASPARTATE AMINOTRANSFERASE 65 U/L (15-37); BILIRUBIN,TOTAL 3.1 mg/dL (0.1-1.0); LIPASE 989 U/L (73-393)
[2021-04-27 18:26] LABS: LACTIC ACID 3.7 mmol/L (0.4-2.0)
[2021-04-27] MEDS ORDERED: SODIUM CHLORIDE 0.9% 1,000 ML IV ONE ×3 (18:45→19:00)
[2021-04-27] MEDS ORDERED: CefTRIAXone 1 GM/DEXTROSE 50 ML IV ONE (19:00)
[2021-04-27] MEDS ORDERED: PANTOPRAZOLE SODIUM 80 MG in SODIUM CHLORIDE 0.9% 100 ML IV SCH (19:00)
[2021-04-27] MEDS ORDERED: OCTREOTIDE ACETATE 100 MCG/ML VIAL IVP ONE (19:00)
[2021-04-27] MEDS ORDERED: OCTREOTIDE ACETATE 500 MCG in DEXTROSE 5%-WATER 97.5 ML IV SCH (19:00)
[2021-04-27] MEDS ORDERED: MORPHINE SULFATE 2 MG/ML SYRINGE IVP ONE (19:00)
[2021-04-27] MEDS ORDERED: PANTOPRAZOLE SODIUM 40 MG/VIAL IVP ONE (19:00)
[2021-04-27] MEDS ORDERED: ONDANSETRON HCL 4 MG/2 ML VIAL IVP ONE (19:00)
[2021-04-27 19:33] LABS: CREATINE KINASE, TOTAL ONLY 36 U/L (39-308)
[2021-04-27] MEDS ORDERED: PHYTONADIONE 10 MG/1 ML AMP SQ ONE (20:00)
[2021-04-27 20:09] LABS: SPECIMENTYPE,BODY FLUID ASCITES
[2021-04-27] MEDS ORDERED: SODIUM CHLORIDE 0.9% 1,000 ML IV SCH (20:15)
[2021-04-27 20:24] LABS: B-TYPE NATRIURETIC PEPTIDE 208 pg/mL (0-100)
[2021-04-27 20:53] LABS: ACETAMINOPHEN < 2 mcg/mL (10-30)
[2021-04-27 21:05] LABS: APPEARANCE,SPUN,BODY FLUID CLEAR (CLEAR); APPEARANCE,UNSPUN,BODY FLUID HAZY (CLEAR); COLOR,BODY FLUID YELLOW (LT YELLOW)
[2021-04-27 21:06] LABS: BASOPHILS,BODY FLUID 0 %; EOSINOPHILS,BF (ANAL) 0 %; LYMPHOCYTES,BODY FLUID 5 %; MONOCYTES,BODY FLUID 0 %; NEUTROPHILS,BODY FLUID 95 %; TOTAL VOLUME,BODY FLUID 21.5 mL; WBC, BODY FLUID 30 /cu. mm.
[2021-04-27 21:52] LABS: COVID AG,FIA SOURCE NASAL SWAB
[2021-04-27] MEDS ORDERED: SODIUM BICARBONATE [ADULT] 8.4% 50 MEQ/50 ML SYRINGE IVP ONE (22:30)
[2021-04-27] MEDS ORDERED: ALBUMIN HUMAN 25%-25GM/100ML 100 ML IV ONE (22:30)
[2021-04-27 22:42] LABS: AMPHET/METH SCREEN,URINE NEGATIVE (NEGATIVE); BARBITURATE SCREEN, URINE NEGATIVE (NEGATIVE); BENZODIAZEPINES SCREEN,URINE NEGATIVE (NEGATIVE); CANNABINOID SCREEN,URINE NEGATIVE (NEGATIVE); COCAINE SCREEN,URINE NEGATIVE (NEGATIVE); METHADONE SCREEN, URINE NEGATIVE (NEGATIVE); OPIATE SCREEN,URINE POSITIVE (NEGATIVE)
[2021-04-27 22:43] LABS: PHENCYCLIDINE SCREEN,URINE NEGATIVE (NEGATIVE)
[2021-04-27 22:50] VITALS: BP 145/66
[2021-04-27] MEDS ORDERED: SODIUM CHLORIDE 0.9% 250 ML IV ONE (23:03)
[2021-04-27 23:30] VITALS: BP 120/68
[2021-04-27 23:33] LABS: APPEARANCE,URINE CLEAR (CLEAR); BILIRUBIN,URINE NEGATIVE (NEGATIVE); GLUCOSE, URINE (UA) NEGATIVE (NEGATIVE); KETONES,URINE NEGATIVE (NEGATIVE); LEUKOCYTE ESTERASE ,URINE NEGATIVE (NEGATIVE); NITRATE,URINE NEGATIVE (NEGATIVE); OCCULT BLOOD,URINE NEGATIVE (NEGATIVE); PH,URINE 5.5 (5.0-8.0); PROTEIN,URINE POS 1+ (NEGATIVE); UROBILINOGEN,URINE 0.2 mg/dL (<=1.0)
[2021-04-27 23:36] LABS: CHLORIDE,URINE RANDOM 65 mmol/L (55-125); CREATININE,URINE RANDOM 148.8 mg/dL (30.0-125.0); PROTEIN,URINE RANDOM 51 mg/dL (0-11.9); SODIUM,URINE RANDOM 32 mmol/l (20-110); UREA NITROGEN,URINE RANDOM 303 mg/dL (350-1000)
[2021-04-27 23:45] VITALS: BP 113/68
[2021-04-28] VITALS (18 sets, daily range): BP systolic 109–139; BP diastolic 64–92
[2021-04-28] MEDS: MORPHINE SULFATE 2 MG/ML SYRINGE IVP PRN ×5 (00:10→19:38)
[2021-04-28 01:18] LABS: FIBRIN SPLIT PRODUCTS GT >10 but LT <40 mcg/mL (<10)
[2021-04-28 01:34] LABS: FIBRINOGEN 68 mg/dL (200-400)
[2021-04-28] MEDS ORDERED: PANTOPRAZOLE SODIUM 80 MG in SODIUM CHLORIDE 0.9% 100 ML IV SCH (05:00)
[2021-04-28 06:06] LABS: ALBUMIN 2.1 g/dL (3.4-5.0); BILIRUBIN,DIRECT 1.9 mg/dL (0.00-0.20); POTASSIUM 4.1 mmol/L (3.5-5.1)
[2021-04-28] MEDS ORDERED: SODIUM CHLORIDE 0.9% 1,000 ML ONE (06:33)
[2021-04-28] MEDS ORDERED: MIDAZOLAM HCL 5 MG/ML VIAL ONE (06:34)
[2021-04-28] MEDS ORDERED: FentaNYL CITRATE PF 100 MCG/2 ML VIAL ONE (06:34)
[2021-04-28 06:36] LABS: CALCIUM, TOTAL 7.4 mg/dL (8.8-10.5); CREATININE 3.08 mg/dL (0.60-1.30); MAGNESIUM 1.8 mg/dL (1.80-2.40); TOTAL PROTEIN, SERUM 6.9 g/dL (6.4-8.2)
[2021-04-28 06:55] LABS: BASOPHILS % (AUTO) 0.8 % (0.0-2.0); EOSINOPHILS % (AUTO) 2.9 % (1.0-6.0); HEMATOCRIT 21.3 % (41-53); HEMOGLOBIN 7.2 g/dL (13.5-17.5); LYMPHOCYTES % (AUTO) 21.8 % (22.0-44.0); MEAN CORPUSCULAR HEMOGLOBIN 33.2 pg (26.0-34.0); MEAN CORPUSCULAR HGB CONC 33.9 G/dL (31.0-37.0); MEAN CORPUSCULAR VOLUME 98 fL (80-100); MONOCYTES # (AUTO) 1.7 K/uL (0.1-1.0); MONOCYTES % (AUTO) 17.8 % (2.0-9.0); NEUTROPHILS # (AUTO) 5.3 K/uL (1.8-7.7); NEUTROPHILS % (AUTO) 56.7 % (40.0-70.0); PLATELET COUNT (AUTO) 233 K/uL (150-450); RED BLOOD CELL COUNT(AUTO) 2.17 MIL/uL (4.50-5.90); RED CELL DISTRIBUTION WIDTH 21.1 % (11.5-14.5)
[2021-04-28] MEDS ORDERED: PANTOPRAZOLE SODIUM 40 MG/VIAL IVP SCH (07:00)
[2021-04-28] MEDS ORDERED: SODIUM CHLORIDE 0.9% 250 ML IV ONE (09:09)
[2021-04-28 09:20] LABS: PROTHROMBIN TIME 20.9 SEC (9.4-11.6)
[2021-04-28 11:07] LABS: HEMATOCRIT 22.6 % (41-53); HEMOGLOBIN 7.7 g/dL (13.5-17.5)
[2021-04-28] MEDS: SODIUM CHLORIDE 0.9% 1,000 ML IV SCH ×2 (12:33→17:43)
[2021-04-28] MEDS: OCTREOTIDE ACETATE 500 MCG in DEXTROSE 5%-WATER 97.5 ML IV SCH (13:51)
[2021-04-28] MEDS: CefTRIAXone 1 GM/DEXTROSE 50 ML IV SCH (20:00)
[2021-04-28] MEDS: ONDANSETRON HCL 4 MG/2 ML VIAL IVP PRN (20:15)
[2021-04-28] MEDS: PANTOPRAZOLE SODIUM 40 MG/VIAL IVP SCH (22:25)
[2021-04-29 00:10] VITALS: BP 132/74
[2021-04-29] MEDS: MORPHINE SULFATE 2 MG/ML SYRINGE IVP PRN ×6 (00:16→20:25)
[2021-04-29] MEDS: ALBUMIN HUMAN 25%-25GM/100ML 100 ML IV SCH ×4 (00:55→20:36)
[2021-04-29] MEDS: ONDANSETRON HCL 4 MG/2 ML VIAL IVP PRN ×3 (01:56→23:45)
[2021-04-29] MEDS: OCTREOTIDE ACETATE 500 MCG in DEXTROSE 5%-WATER 97.5 ML IV SCH ×3 (01:57→20:37)
[2021-04-29 03:48] VITALS: BP 143/78
[2021-04-29] MEDS: SODIUM CHLORIDE 0.9% 1,000 ML IV SCH ×2 (05:17→20:36)
[2021-04-29 07:00] LABS: ALBUMIN 2.5 g/dL (3.4-5.0); BILIRUBIN,TOTAL 4.2 mg/dL (0.1-1.0); CALCIUM, TOTAL 7.6 mg/dL (8.8-10.5); CREATININE 2.18 mg/dL (0.60-1.30); MAGNESIUM 1.8 mg/dL (1.80-2.40); PHOSPHORUS 4.9 mg/dL (2.5-4.9); POTASSIUM 3.3 mmol/L (3.5-5.1); TOTAL PROTEIN, SERUM 7.7 g/dL (6.4-8.2)
[2021-04-29 07:03] LABS: EOSINOPHILS % (AUTO) 1.7 % (1.0-6.0); HEMATOCRIT 22.5 % (41-53); HEMOGLOBIN 7.7 g/dL (13.5-17.5); LYMPHOCYTES # (AUTO) 1.7 K/uL (1.0-4.8); LYMPHOCYTES % (AUTO) 17.7 % (22.0-44.0); MEAN CORPUSCULAR HEMOGLOBIN 33.4 pg (26.0-34.0); MEAN CORPUSCULAR HGB CONC 34.3 G/dL (31.0-37.0); MEAN CORPUSCULAR VOLUME 98 fL (80-100); MONOCYTES # (AUTO) 1.4 K/uL (0.1-1.0); MONOCYTES % (AUTO) 14.5 % (2.0-9.0); NEUTROPHILS # (AUTO) 6.3 K/uL (1.8-7.7); NEUTROPHILS % (AUTO) 65.1 % (40.0-70.0); RED BLOOD CELL COUNT(AUTO) 2.31 MIL/uL (4.50-5.90); RED CELL DISTRIBUTION WIDTH 20.9 % (11.5-14.5)
[2021-04-29 07:11] VITALS: BP 148/89
[2021-04-29] MEDS ORDERED: POTASSIUM CHLORIDE 10 MEQ ER TABLET PO ONE (08:15)
[2021-04-29] MEDS: PANTOPRAZOLE SODIUM 40 MG/VIAL IVP SCH ×2 (08:33→21:08)
[2021-04-29 08:47] LABS: INR 1.9 (0.9-1.1); PROTHROMBIN TIME 19.3 SEC (9.4-11.6)
[2021-04-29 09:07] LABS: PLATELET COUNT (AUTO) 270 K/uL (150-450)
[2021-04-29 11:31] VITALS: BP 148/82
[2021-04-29] MEDS ORDERED: SODIUM CHLORIDE 0.9% 250 ML IV ONE (14:50)
[2021-04-29 15:39] VITALS: BP 141/80
[2021-04-29 19:19] VITALS: BP 150/87
[2021-04-29] MEDS: CefTRIAXone 1 GM/DEXTROSE 50 ML IV SCH (20:37)
[2021-04-29] MEDS ORDERED: MORPHINE SULFATE 2 MG/ML SYRINGE IVP ONE (21:00)
[2021-04-30] MEDS: ALBUMIN HUMAN 25%-25GM/100ML 100 ML IV SCH ×4 (00:55→18:42)
[2021-04-30] MEDS: MORPHINE SULFATE 4 MG/ML SYRINGE IVP PRN ×3 (01:10→13:24)
[2021-04-30] MEDS: SODIUM CHLORIDE 0.9% 1,000 ML IV SCH ×3 (01:16→20:58)
[2021-04-30 04:41] VITALS: BP 144/83
[2021-04-30] MEDS: OCTREOTIDE ACETATE 500 MCG in DEXTROSE 5%-WATER 97.5 ML IV SCH ×2 (05:29→16:31)
[2021-04-30 07:48] VITALS: BP 145/74
[2021-04-30 07:53] LABS: CALCIUM, TOTAL 8.1 mg/dL (8.8-10.5); CREATININE 1.39 mg/dL (0.60-1.30); MAGNESIUM 1.7 mg/dL (1.80-2.40); PHOSPHORUS 3.4 mg/dL (2.5-4.9); POTASSIUM 3.5 mmol/L (3.5-5.1)
[2021-04-30] MEDS ORDERED: MAGNESIUM SULFATE 1 GM in DEXTROSE 5%-WATER 50 ML IV ONE (08:30)
[2021-04-30] MEDS: PANTOPRAZOLE SODIUM 40 MG/VIAL IVP SCH ×2 (08:59→20:59)
[2021-04-30 11:35] LABS: HEPATITIS C AB (EIA) 0.2 s/co ratio (0.0-0.9)
[2021-04-30 20:50] VITALS: BP 139/87
[2021-04-30] MEDS: CefTRIAXone 1 GM/DEXTROSE 50 ML IV SCH (20:59)
[2021-05-01] VITALS (12 sets, daily range): BP systolic 101–136; BP diastolic 56–79
[2021-05-01] MEDS: OCTREOTIDE ACETATE 500 MCG in DEXTROSE 5%-WATER 97.5 ML IV SCH ×2 (00:24→10:47)
[2021-05-01] MEDS: ALBUMIN HUMAN 25%-25GM/100ML 100 ML IV SCH ×5 (00:24→18:00)
[2021-05-01] MEDS: MORPHINE SULFATE 4 MG/ML SYRINGE IVP PRN (03:01)
[2021-05-01 07:01] LABS: CREATININE 1.46 mg/dL (0.60-1.30); MAGNESIUM 1.9 mg/dL (1.80-2.40); PHOSPHORUS 2.9 mg/dL (2.5-4.9); POTASSIUM 3.5 mmol/L (3.5-5.1)
[2021-05-01 07:15] LABS: BASOPHILS % (AUTO) 0.3 % (0.0-2.0); EOSINOPHILS % (AUTO) 1.5 % (1.0-6.0); LYMPHOCYTES # (AUTO) 1.8 K/uL (1.0-4.8); MEAN CORPUSCULAR HEMOGLOBIN 32.6 pg (26.0-34.0); MEAN CORPUSCULAR HGB CONC 33.4 G/dL (31.0-37.0); MEAN CORPUSCULAR VOLUME 98 fL (80-100); MONOCYTES # (AUTO) 1.9 K/uL (0.1-1.0); MONOCYTES % (AUTO) 16.8 % (2.0-9.0); NEUTROPHILS # (AUTO) 7.3 K/uL (1.8-7.7); NEUTROPHILS % (AUTO) 65.4 % (40.0-70.0); PLATELET COUNT (AUTO) 172 K/uL (150-450); RED BLOOD CELL COUNT(AUTO) 1.96 MIL/uL (4.50-5.90); RED CELL DISTRIBUTION WIDTH 20.8 % (11.5-14.5)
[2021-05-01 07:33] LABS: HEMATOCRIT 19.1 % (41-53); HEMOGLOBIN 6.4 g/dL (13.5-17.5)
[2021-05-01] MEDS: PANTOPRAZOLE SODIUM 40 MG/VIAL IVP SCH ×2 (08:15→20:16)
[2021-05-01] MEDS: SODIUM CHLORIDE 0.9% 1,000 ML IV SCH ×2 (08:16→17:16)
[2021-05-01] MEDS ORDERED: FUROSEMIDE 20 MG/2 ML VIAL IVP ONE (12:00)
[2021-05-01] MEDS: PROPRANOLOL HCL 10 MG TABLET PO SCH (16:00)
[2021-05-01] MEDS ORDERED: LORazepam 2 MG/ML VIAL IVP ONE (17:15)
[2021-05-01] MEDS: CefTRIAXone 1 GM/DEXTROSE 50 ML IV SCH (20:15)
[2021-05-02] VITALS (11 sets, daily range): BP systolic 119–134; BP diastolic 71–89
[2021-05-02] MEDS: ALBUMIN HUMAN 25%-25GM/100ML 100 ML IV SCH ×3 (01:10→21:00)
[2021-05-02] MEDS: SODIUM CHLORIDE 0.9% 1,000 ML IV SCH ×3 (03:16→23:16)
[2021-05-02 07:06] LABS: HEMATOCRIT 22.5 % (41-53); HEMOGLOBIN 7.8 g/dL (13.5-17.5); MEAN CORPUSCULAR HEMOGLOBIN 32.4 pg (26.0-34.0); MEAN CORPUSCULAR HGB CONC 34.5 G/dL (31.0-37.0); MEAN CORPUSCULAR VOLUME 94 fL (80-100); PLATELET COUNT (AUTO) 158 K/uL (150-450); RED BLOOD CELL COUNT(AUTO) 2.39 MIL/uL (4.50-5.90); RED CELL DISTRIBUTION WIDTH 20.1 % (11.5-14.5)
[2021-05-02 07:16] LABS: INR 2.5 (0.9-1.1); PROTHROMBIN TIME 24.8 SEC (9.4-11.6)
[2021-05-02 07:50] LABS: BAND NEUTROPHILS % (MANUAL) 13 % (0-5); EOSINOPHILS % (MANUAL) 1 % (1-6); LYMPHOCYTES % (MANUAL) 12 % (22-44); MONOCYTES % (MANUAL) 2 % (2-9); SEGMENTED NEUTROPHILS % 72 % (40-70)
[2021-05-02] MEDS: PROPRANOLOL HCL 10 MG TABLET PO SCH ×4 (08:00→23:44)
[2021-05-02] MEDS: PANTOPRAZOLE SODIUM 40 MG/VIAL IVP SCH ×2 (08:13→20:57)
[2021-05-02] MEDS: LACTULOSE 200 GM/300 ML RECTAL SOLUTION PR SCH (12:51)
[2021-05-02 14:05] LABS: HEMOGLOBIN 7.9 g/dL (13.5-17.5)
[2021-05-02] MEDS: RIFAXIMIN 550 MG TABLET PO SCH ×2 (15:01→21:00)
[2021-05-02] MEDS: CefTRIAXone 1 GM/DEXTROSE 50 ML IV SCH (19:59)
[2021-05-03] VITALS: BP 130/87
[2021-05-03 00:28] LABS: ABG A-A DIFF O2 85.9 mmHg (10-20.0); ABG BASE EXCESS -7.1 mmol/L (-2.0-3.0); ABG CARBOXYHEMOGLOBIN 1.7 % (0.0-1.5); ABG HCO3 19.5 mmol/L (22.0-26.0); ABG METHEMOGLOBIN 0.3 % (0.0-1.5); ABG OXYGEN CONTENT 11.3 mL/dL (15.0-23.0); ABG OXYGEN SATURATION 97.2 % (95.0-98.0); ABG OXYHEMOGLOBIN 95.3 % (94.0-100.0); ABG PCO2 21 mmHg (35-45); ABG PH 7.496 (7.35-7.450); ABG TOTAL HEMOGLOBIN 8.3 G/dL (12.0-18.0); O2 DEVICE,BLOOD GAS CANNULA (ROOM AIR); PO2, ARTERIAL BG 88.6 mmHg (84.0-92.0); SITE, BLOOD GAS RT RADIAL; SOURCE, BLOOD GAS ARTERIAL; TEMPERATURE, FAHRENHEIT, BG 98.3 FAHREN (96.0-98.6)
[2021-05-03] MEDS ORDERED: LACTULOSE 200 GM/300 ML RECTAL SOLUTION PR ONE (00:30)
[2021-05-03 00:43] LABS: BASOPHILS % (AUTO) 1.1 % (0.0-2.0); EOSINOPHILS % (AUTO) 3.9 % (1.0-6.0); HEMATOCRIT 22.4 % (41-53); HEMOGLOBIN 7.8 g/dL (13.5-17.5); LYMPHOCYTES # (AUTO) 2.4 K/uL (1.0-4.8); LYMPHOCYTES % (AUTO) 22.8 % (22.0-44.0); MEAN CORPUSCULAR HEMOGLOBIN 32.5 pg (26.0-34.0); MEAN CORPUSCULAR HGB CONC 34.9 G/dL (31.0-37.0); MEAN CORPUSCULAR VOLUME 93 fL (80-100); MONOCYTES % (AUTO) 18.3 % (2.0-9.0); NEUTROPHILS # (AUTO) 5.8 K/uL (1.8-7.7); NEUTROPHILS % (AUTO) 53.9 % (40.0-70.0); PLATELET COUNT (AUTO) 147 K/uL (150-450); RED BLOOD CELL COUNT(AUTO) 2.41 MIL/uL (4.50-5.90); RED CELL DISTRIBUTION WIDTH 19.6 % (11.5-14.5)
[2021-05-03 01:00] LABS: ANION GAP 15 mmol/L (8-16); CALCIUM, TOTAL 8.6 mg/dL (8.8-10.5); CARBON DIOXIDE 19 mmol/L (22-29); CHLORIDE 109 mmol/L (98-107); CREATININE 1.19 mg/dL (0.60-1.30); GLOMERULAR FILTR. RATE CALC > 60 mL/min (>60); GLUCOSE,RANDOM 134 mg/dL (70-110); POTASSIUM 3.2 mmol/L (3.5-5.1); SODIUM SERUM 143 mmol/L (136-145); UREA NITROGEN, BLOOD 29 mg/dL (7-18)
[2021-05-03 01:04] LABS: PHOSPHORUS 2.5 mg/dL (2.5-4.9)
[2021-05-03] MEDS ORDERED: SODIUM CHLORIDE 0.9% IRRIG BTL 1,000 ML IRRIG ONE ×3 (01:05→21:03)
[2021-05-03 04:00] VITALS: BP 124/89
[2021-05-03 05:50] LABS: HEMATOCRIT 24.2 % (41-53); HEMOGLOBIN 8.1 g/dL (13.5-17.5); MEAN CORPUSCULAR HEMOGLOBIN 31.9 pg (26.0-34.0); MEAN CORPUSCULAR HGB CONC 33.5 G/dL (31.0-37.0); MEAN CORPUSCULAR VOLUME 95 fL (80-100); PLATELET COUNT (AUTO) 161 K/uL (150-450); RED BLOOD CELL COUNT(AUTO) 2.55 MIL/uL (4.50-5.90); RED CELL DISTRIBUTION WIDTH 19.9 % (11.5-14.5)
[2021-05-03 06:14] LABS: ALANINE AMINOTRANSFERASE 19 U/L (12-78); ALBUMIN 3.6 g/dL (3.4-5.0); ALKALINE PHOSPHATASE 80 U/L (46-116); ANION GAP 15 mmol/L (8-16); ASPARTATE AMINOTRANSFERASE 51 U/L (15-37); BILIRUBIN,TOTAL 8.8 mg/dL (0.1-1.0); CALCIUM, TOTAL 8.7 mg/dL (8.8-10.5); CARBON DIOXIDE 20 mmol/L (22-29); CHLORIDE 109 mmol/L (98-107); CREATININE 1.05 mg/dL (0.60-1.30); GLOMERULAR FILTR. RATE CALC > 60 mL/min (>60); GLUCOSE,RANDOM 130 mg/dL (70-110); PHOSPHORUS 2.6 mg/dL (2.5-4.9); POTASSIUM 3.6 mmol/L (3.5-5.1); SODIUM SERUM 144 mmol/L (136-145); TOTAL PROTEIN, SERUM 7.1 g/dL (6.4-8.2); UREA NITROGEN, BLOOD 29 mg/dL (7-18)
[2021-05-03 06:47] LABS: BAND NEUTROPHILS % (MANUAL) 9 % (0-5); LYMPHOCYTES % (MANUAL) 18 % (22-44); MONOCYTES % (MANUAL) 3 % (2-9); SEGMENTED NEUTROPHILS % 70 % (40-70)
[2021-05-03 07:08] VITALS: BP 138/85
[2021-05-03] MEDS: PROPRANOLOL HCL 10 MG TABLET PO SCH ×3 (08:00→23:23)
[2021-05-03] MEDS: RIFAXIMIN 550 MG TABLET PO SCH ×3 (08:13→21:00)
[2021-05-03] MEDS: PANTOPRAZOLE SODIUM 40 MG/VIAL IVP SCH ×2 (08:23→19:45)
[2021-05-03] MEDS: ALBUMIN HUMAN 25%-25GM/100ML 100 ML IV SCH (08:24)
[2021-05-03] MEDS: SODIUM CHLORIDE 0.9% 1,000 ML IV SCH ×2 (08:24→19:46)
[2021-05-03] MEDS: LACTULOSE 200 GM/300 ML RECTAL SOLUTION PR SCH ×3 (09:26→21:27)
[2021-05-03 11:43] VITALS: BP 123/84
[2021-05-03] MEDS ORDERED: MAGNESIUM SULFATE 3 GM in DEXTROSE 5%-WATER 100 ML IV ONE (13:45)
[2021-05-03 13:53] LABS: GLUCOMETER DEV NAME(LOC) 5N.1C; GLUCOSE,POINT OF CARE 136 MG/DL (70-110)
[2021-05-03] MEDS: CefTRIAXone 1 GM/DEXTROSE 50 ML IV SCH (19:45)
[2021-05-03 20:18] VITALS: BP 133/93
[2021-05-04] VITALS: BP 140/91
[2021-05-04 04:30] VITALS: BP 145/80
[2021-05-04] MEDS: SODIUM CHLORIDE 0.9% 1,000 ML IV SCH ×3 (06:00→22:34)
[2021-05-04] MEDS: LACTULOSE 200 GM/300 ML RECTAL SOLUTION PR SCH ×3 (09:00→15:37)
[2021-05-04] MEDS ORDERED: MAGNESIUM SULFATE 1 GM in DEXTROSE 5%-WATER 50 ML IV ONE (10:00)
[2021-05-04] MEDS: PANTOPRAZOLE SODIUM 40 MG/VIAL IVP SCH (10:00)
[2021-05-04] MEDS: PROPRANOLOL HCL 10 MG TABLET PO SCH ×3 (10:00→23:08)
[2021-05-04] MEDS: RIFAXIMIN 550 MG TABLET PO SCH ×3 (10:00→20:52)
[2021-05-04 11:04] LABS: ALANINE AMINOTRANSFERASE 18 U/L (12-78); ALBUMIN 3.4 g/dL (3.4-5.0); ALKALINE PHOSPHATASE 80 U/L (46-116); ANION GAP 12 mmol/L (8-16); ASPARTATE AMINOTRANSFERASE 41 U/L (15-37); BILIRUBIN,TOTAL 8.1 mg/dL (0.1-1.0); CALCIUM, TOTAL 8.5 mg/dL (8.8-10.5); CARBON DIOXIDE 23 mmol/L (22-29); CHLORIDE 114 mmol/L (98-107); CREATININE 0.88 mg/dL (0.60-1.30); GLOMERULAR FILTR. RATE CALC > 60 mL/min (>60); GLUCOSE,RANDOM 142 mg/dL (70-110); SODIUM SERUM 149 mmol/L (136-145); TOTAL PROTEIN, SERUM 6.6 g/dL (6.4-8.2); UREA NITROGEN, BLOOD 19 mg/dL (7-18)
[2021-05-04 11:10] LABS: POTASSIUM 2.8 mmol/L (3.5-5.1)
[2021-05-04 12:31] VITALS: BP 137/85
[2021-05-04] MEDS: POTASSIUM CHL 10 MEQ/WATER 50 ML IV PRN ×2 (15:21→16:36)
[2021-05-04 16:39] VITALS: BP 131/90
[2021-05-04] MEDS ORDERED: DEXTROSE 5%-WATER 1,000 ML IV SCH (17:15)
[2021-05-04] MEDS: POTASSIUM CHL 10 MEQ/WATER 50 ML IV SCH ×4 (17:15→20:52)
[2021-05-04 20:09] VITALS: BP 150/91
[2021-05-04] MEDS: PANTOPRAZOLE SODIUM 40 MG DR TABLET PO SCH (20:52)
[2021-05-04] MEDS: LACTULOSE 20 GM/30 ML SOLUTION UDCUP PO SCH (20:52)
[2021-05-04 22:02] LABS: GLUCOMETER DEV NAME(LOC) 5N.1C; GLUCOSE,POINT OF CARE 121 MG/DL (70-110)
[2021-05-04] MEDS: CefTRIAXone 1 GM/DEXTROSE 50 ML IV SCH (22:30)
[2021-05-05 00:11] VITALS: BP 139/91
[2021-05-05] MEDS: POTASSIUM CHL 10 MEQ/WATER 50 ML IV PRN ×3 (00:58→03:36)
[2021-05-05 04:20] VITALS: BP 132/79
[2021-05-05 05:28] LABS: HEMATOCRIT 22.5 % (41-53); HEMOGLOBIN 7.7 g/dL (13.5-17.5); MEAN CORPUSCULAR HEMOGLOBIN 31.9 pg (26.0-34.0); MEAN CORPUSCULAR VOLUME 94 fL (80-100); PLATELET COUNT (AUTO) 120 K/uL (150-450); RED CELL DISTRIBUTION WIDTH 19.6 % (11.5-14.5)
[2021-05-05 05:35] LABS: BAND NEUTROPHILS % (MANUAL) 7 % (0-5); EOSINOPHILS % (MANUAL) 3 % (1-6); LYMPHOCYTES % (MANUAL) 21 % (22-44); MONOCYTES % (MANUAL) 11 % (2-9); SEGMENTED NEUTROPHILS % 58 % (40-70)
[2021-05-05 05:40] LABS: ANION GAP 10 mmol/L (8-16); CARBON DIOXIDE 22 mmol/L (22-29); CHLORIDE 111 mmol/L (98-107); CREATININE 0.86 mg/dL (0.60-1.30); GLOMERULAR FILTR. RATE CALC > 60 mL/min (>60); GLUCOSE,RANDOM 164 mg/dL (70-110); POTASSIUM 3.3 mmol/L (3.5-5.1); SODIUM SERUM 143 mmol/L (136-145); UREA NITROGEN, BLOOD 15 mg/dL (7-18)
[2021-05-05] MEDS: POTASSIUM CHLORIDE 20 MEQ ER TABLET PO PRN ×2 (05:56→23:35)
[2021-05-05] MEDS: MAGNESIUM OXIDE 400 MG TABLET PO PRN (05:58)
[2021-05-05 06:00] LABS: PROTHROMBIN TIME 26.6 SEC (9.4-11.6)
[2021-05-05] MEDS ORDERED: MAGNESIUM SULFATE 4 GM/WATER 100 ML IV PRN (06:00)
[2021-05-05 06:02] LABS: INR 2.7 (0.9-1.1)
[2021-05-05 06:52] LABS: ALANINE AMINOTRANSFERASE 20 U/L (12-78); ALBUMIN 3.1 g/dL (3.4-5.0); ALKALINE PHOSPHATASE 75 U/L (46-116); ASPARTATE AMINOTRANSFERASE 48 U/L (15-37); BILIRUBIN,TOTAL 7.9 mg/dL (0.1-1.0); TOTAL PROTEIN, SERUM 6.5 g/dL (6.4-8.2)
[2021-05-05 06:59] VITALS: BP 131/83
[2021-05-05] MEDS: PANTOPRAZOLE SODIUM 40 MG DR TABLET PO SCH ×2 (08:01→20:46)
[2021-05-05] MEDS: PROPRANOLOL HCL 10 MG TABLET PO SCH ×3 (08:01→23:35)
[2021-05-05] MEDS: RIFAXIMIN 550 MG TABLET PO SCH ×3 (08:01→20:46)
[2021-05-05] MEDS: LACTULOSE 20 GM/30 ML SOLUTION UDCUP PO SCH ×2 (08:01→20:46)
[2021-05-05] MEDS: POTASSIUM CHL 10 MEQ/WATER 50 ML IV SCH ×4 (09:00→12:00)
[2021-05-05] MEDS ORDERED: MAGNESIUM SULFATE 3 GM in DEXTROSE 5%-WATER 100 ML IV ONE (09:00)
[2021-05-05] MEDS ORDERED: SODIUM PHOS,M-BASIC-D-BASIC 30 MMOL in DEXTROSE 5%-WATER 250 ML IV ONE (09:00)
[2021-05-05] MEDS ORDERED: PHYTONADIONE 10 MG in SODIUM CHLORIDE 0.9% 50 ML IV ONE (09:45)
[2021-05-05 10:57] VITALS: BP 147/93
[2021-05-05] MEDS: SPIRONOLACTONE 50 MG TABLET PO SCH (12:30)
[2021-05-05] MEDS: FUROSEMIDE 20 MG TABLET PO SCH (13:06)
[2021-05-05 15:21] VITALS: BP 138/80
[2021-05-05 20:46] VITALS: BP 31/79
[2021-05-05] MEDS ORDERED: SODIUM CHLORIDE 0.9% 250 ML IV ONE (21:03)
[2021-05-05] MEDS: CefTRIAXone 1 GM/DEXTROSE 50 ML IV SCH (21:04)
[2021-05-05] MEDS: ONDANSETRON HCL 4 MG/2 ML VIAL IVP PRN (23:37)
[2021-05-05] MEDS: MORPHINE SULFATE 4 MG/ML SYRINGE IVP PRN (23:38)
[2021-05-06] VITALS (14 sets, daily range): BP systolic 104–139; BP diastolic 61–83
[2021-05-06 08:05] LABS: MAGNESIUM 1.8 mg/dL (1.80-2.40); POTASSIUM 3.8 mmol/L (3.5-5.1)
[2021-05-06 08:16] LABS: INR 2.6 (0.9-1.1)
[2021-05-06] MEDS: PANTOPRAZOLE SODIUM 40 MG DR TABLET PO SCH ×3 (09:00→21:04)
[2021-05-06] MEDS: SPIRONOLACTONE 50 MG TABLET PO SCH (09:39)
[2021-05-06] MEDS: PROPRANOLOL HCL 10 MG TABLET PO SCH ×3 (09:39→23:21)
[2021-05-06] MEDS: FUROSEMIDE 20 MG TABLET PO SCH (09:39)
[2021-05-06] MEDS: RIFAXIMIN 550 MG TABLET PO SCH ×3 (09:39→21:04)
[2021-05-06] MEDS: LACTULOSE 20 GM/30 ML SOLUTION UDCUP PO SCH ×2 (10:18→21:04)
[2021-05-06 18:43] LABS: BASOPHILS % (AUTO) 0.8 % (0.0-2.0); EOSINOPHILS % (AUTO) 4.5 % (1.0-6.0); LYMPHOCYTES # (AUTO) 3.9 K/uL (1.0-4.8); LYMPHOCYTES % (AUTO) 25.4 % (22.0-44.0); MEAN CORPUSCULAR HEMOGLOBIN 30.8 pg (26.0-34.0); MEAN CORPUSCULAR HGB CONC 32.2 G/dL (31.0-37.0); MEAN CORPUSCULAR VOLUME 96 fL (80-100); MONOCYTES # (AUTO) 1.9 K/uL (0.1-1.0); MONOCYTES % (AUTO) 12.5 % (2.0-9.0); NEUTROPHILS # (AUTO) 8.6 K/uL (1.8-7.7); NEUTROPHILS % (AUTO) 56.8 % (40.0-70.0); PLATELET COUNT (AUTO) 106 K/uL (150-450); RED BLOOD CELL COUNT(AUTO) 2.17 MIL/uL (4.50-5.90); RED CELL DISTRIBUTION WIDTH 20.3 % (11.5-14.5)
[2021-05-06 19:23] LABS: HEMOGLOBIN 6.7 g/dL (13.5-17.5)
[2021-05-06 19:24] LABS: HEMATOCRIT 20.8 % (41-53)
[2021-05-06] MEDS: CefTRIAXone 1 GM/DEXTROSE 50 ML IV SCH (20:49)
[2021-05-06] MEDS ORDERED: SODIUM CHLORIDE 0.9% 250 ML IV ONE (22:49)
[2021-05-07] VITALS (11 sets, daily range): BP systolic 105–139; BP diastolic 63–76
[2021-05-07 06:59] LABS: ANION GAP 9 mmol/L (8-16); CALCIUM, TOTAL 8.1 mg/dL (8.8-10.5); CARBON DIOXIDE 21 mmol/L (22-29); CHLORIDE 109 mmol/L (98-107); CREATININE 1.05 mg/dL (0.60-1.30); GLOMERULAR FILTR. RATE CALC > 60 mL/min (>60); GLUCOSE,RANDOM 150 mg/dL (70-110); POTASSIUM 3.7 mmol/L (3.5-5.1); SODIUM SERUM 139 mmol/L (136-145); UREA NITROGEN, BLOOD 11 mg/dL (7-18)
[2021-05-07 07:02] LABS: MAGNESIUM 1.7 mg/dL (1.80-2.40)
[2021-05-07] MEDS: PROPRANOLOL HCL 10 MG TABLET PO SCH ×3 (08:00→23:27)
[2021-05-07] MEDS: LACTULOSE 20 GM/30 ML SOLUTION UDCUP PO SCH ×2 (09:00→20:33)
[2021-05-07 09:11] LABS: BASOPHILS % (AUTO) 1.4 % (0.0-2.0); EOSINOPHILS % (AUTO) 4.3 % (1.0-6.0); HEMATOCRIT 21.6 % (41-53); HEMOGLOBIN 7.2 g/dL (13.5-17.5); LYMPHOCYTES # (AUTO) 3.3 K/uL (1.0-4.8); LYMPHOCYTES % (AUTO) 25.9 % (22.0-44.0); MEAN CORPUSCULAR HEMOGLOBIN 31.2 pg (26.0-34.0); MEAN CORPUSCULAR HGB CONC 33.2 G/dL (31.0-37.0); MEAN CORPUSCULAR VOLUME 94 fL (80-100); MONOCYTES # (AUTO) 1.7 K/uL (0.1-1.0); MONOCYTES % (AUTO) 13.2 % (2.0-9.0); NEUTROPHILS % (AUTO) 55.2 % (40.0-70.0); PLATELET COUNT (AUTO) 91 K/uL (150-450); RED BLOOD CELL COUNT(AUTO) 2.29 MIL/uL (4.50-5.90); RED CELL DISTRIBUTION WIDTH 19.7 % (11.5-14.5)
[2021-05-07 09:33] LABS: INR 2.3 (0.9-1.1); PROTHROMBIN TIME 23.1 SEC (9.4-11.6)
[2021-05-07] MEDS ORDERED: MAGNESIUM SULFATE 3 GM in DEXTROSE 5%-WATER 100 ML IV ONE (12:00)
[2021-05-07] MEDS: FUROSEMIDE 20 MG TABLET PO SCH (12:20)
[2021-05-07] MEDS: RIFAXIMIN 550 MG TABLET PO SCH ×3 (12:20→20:33)
[2021-05-07] MEDS: SPIRONOLACTONE 50 MG TABLET PO SCH (12:20)
[2021-05-07] MEDS ORDERED: PEG 3350/NA SULF,BICARB,CL/KCL 4000 ML SOLUTION PO ONE (14:00)
[2021-05-07 20:32] LABS: HEMOGLOBIN 7.3 g/dL (13.5-17.5)
[2021-05-07] MEDS: CefTRIAXone 1 GM/DEXTROSE 50 ML IV SCH (20:32)
[2021-05-07] MEDS: PANTOPRAZOLE SODIUM 40 MG/VIAL IVP SCH (20:33)
[2021-05-08] VITALS (24 sets, daily range): BP systolic 105–139; BP diastolic 59–86
[2021-05-08 06:47] LABS: BASOPHILS % (AUTO) 1.3 % (0.0-2.0); EOSINOPHILS % (AUTO) 3.9 % (1.0-6.0); HEMATOCRIT 21.1 % (41-53); LYMPHOCYTES # (AUTO) 3.1 K/uL (1.0-4.8); LYMPHOCYTES % (AUTO) 24.3 % (22.0-44.0); MEAN CORPUSCULAR HEMOGLOBIN 31.3 pg (26.0-34.0); MEAN CORPUSCULAR HGB CONC 33.2 G/dL (31.0-37.0); MEAN CORPUSCULAR VOLUME 94 fL (80-100); MONOCYTES # (AUTO) 1.6 K/uL (0.1-1.0); MONOCYTES % (AUTO) 12.2 % (2.0-9.0); NEUTROPHILS # (AUTO) 7.4 K/uL (1.8-7.7); NEUTROPHILS % (AUTO) 58.3 % (40.0-70.0); PLATELET COUNT (AUTO) 94 K/uL (150-450); RED BLOOD CELL COUNT(AUTO) 2.23 MIL/uL (4.50-5.90); RED CELL DISTRIBUTION WIDTH 19.7 % (11.5-14.5)
[2021-05-08 07:06] LABS: ALANINE AMINOTRANSFERASE 25 U/L (12-78); ALBUMIN 2.6 g/dL (3.4-5.0); ALKALINE PHOSPHATASE 72 U/L (46-116); ANION GAP 6 mmol/L (8-16); ASPARTATE AMINOTRANSFERASE 50 U/L (15-37); BILIRUBIN,TOTAL 6.8 mg/dL (0.1-1.0); CALCIUM, TOTAL 8.1 mg/dL (8.8-10.5); CARBON DIOXIDE 23 mmol/L (22-29); CHLORIDE 108 mmol/L (98-107); CREATININE 0.91 mg/dL (0.60-1.30); GLOMERULAR FILTR. RATE CALC > 60 mL/min (>60); GLUCOSE,RANDOM 144 mg/dL (70-110); POTASSIUM 3.7 mmol/L (3.5-5.1); SODIUM SERUM 137 mmol/L (136-145); TOTAL PROTEIN, SERUM 6.1 g/dL (6.4-8.2); UREA NITROGEN, BLOOD 9 mg/dL (7-18)
[2021-05-08 09:00] LABS: INR 2.5 (0.9-1.1); PROTHROMBIN TIME 25.2 SEC (9.4-11.6)
[2021-05-08] MEDS: PANTOPRAZOLE SODIUM 40 MG/VIAL IVP SCH ×2 (09:53→21:15)
[2021-05-08] MEDS: LACTULOSE 20 GM/30 ML SOLUTION UDCUP PO SCH ×2 (09:53→21:15)
[2021-05-08] MEDS: FUROSEMIDE 20 MG TABLET PO SCH (09:53)
[2021-05-08] MEDS: RIFAXIMIN 550 MG TABLET PO SCH ×3 (09:53→21:15)
[2021-05-08] MEDS: PROPRANOLOL HCL 10 MG TABLET PO SCH ×2 (09:54→16:00)
[2021-05-08] MEDS: SPIRONOLACTONE 50 MG TABLET PO SCH (09:54)
[2021-05-08] MEDS ORDERED: LIDOCAINE/PF 2% 5 ML SYRINGE IVP ONE (12:00)
[2021-05-08] MEDS ORDERED: PROPOFOL 1% 20 ML VIAL IVP ONE (12:00)
[2021-05-08] MEDS ORDERED: SODIUM CHLORIDE 0.9% 1,000 ML ONE ×2 (13:14→16:21)
[2021-05-08 17:00] LABS: HEMOGLOBIN 6.8 g/dL (13.5-17.5)
[2021-05-08 17:01] LABS: HEMATOCRIT 20.1 % (41-53)
[2021-05-08] MEDS ORDERED: SODIUM CHLORIDE 0.9% 500 ML IV ONE (20:01)
[2021-05-08 20:45] LABS: HEMOGLOBIN 6.7 g/dL (13.5-17.5)
[2021-05-08 20:46] LABS: HEMATOCRIT 19.8 % (41-53)
[2021-05-08] MEDS: CefTRIAXone 1 GM/DEXTROSE 50 ML IV SCH (21:15)
[2021-05-09] VITALS (12 sets, daily range): BP systolic 104–136; BP diastolic 63–91
[2021-05-09] MEDS: PROPRANOLOL HCL 10 MG TABLET PO SCH ×4 (00:29→23:42)
[2021-05-09 06:42] LABS: BASOPHILS % (AUTO) 0.9 % (0.0-2.0); EOSINOPHILS % (AUTO) 3.2 % (1.0-6.0); HEMOGLOBIN 7.1 g/dL (13.5-17.5); LYMPHOCYTES # (AUTO) 3.2 K/uL (1.0-4.8); LYMPHOCYTES % (AUTO) 26.6 % (22.0-44.0); MEAN CORPUSCULAR HEMOGLOBIN 31.6 pg (26.0-34.0); MEAN CORPUSCULAR HGB CONC 33.8 G/dL (31.0-37.0); MEAN CORPUSCULAR VOLUME 94 fL (80-100); MONOCYTES # (AUTO) 1.3 K/uL (0.1-1.0); NEUTROPHILS # (AUTO) 6.9 K/uL (1.8-7.7); NEUTROPHILS % (AUTO) 58.3 % (40.0-70.0); RED BLOOD CELL COUNT(AUTO) 2.24 MIL/uL (4.50-5.90); RED CELL DISTRIBUTION WIDTH 18.8 % (11.5-14.5)
[2021-05-09 06:46] LABS: ALANINE AMINOTRANSFERASE 24 U/L (12-78); ALBUMIN 2.8 g/dL (3.4-5.0); ALKALINE PHOSPHATASE 84 U/L (46-116); ANION GAP 9 mmol/L (8-16); ASPARTATE AMINOTRANSFERASE 44 U/L (15-37); BILIRUBIN,TOTAL 5.6 mg/dL (0.1-1.0); CARBON DIOXIDE 23 mmol/L (22-29); CHLORIDE 108 mmol/L (98-107); GLOMERULAR FILTR. RATE CALC > 60 mL/min (>60); GLUCOSE,RANDOM 183 mg/dL (70-110); POTASSIUM 3.8 mmol/L (3.5-5.1); SODIUM SERUM 140 mmol/L (136-145); TOTAL PROTEIN, SERUM 6.2 g/dL (6.4-8.2); UREA NITROGEN, BLOOD 8 mg/dL (7-18)
[2021-05-09 07:25] LABS: HEMATOCRIT 20.9 % (41-53)
[2021-05-09] MEDS: LACTULOSE 20 GM/30 ML SOLUTION UDCUP PO SCH ×2 (08:08→20:32)
[2021-05-09] MEDS: RIFAXIMIN 550 MG TABLET PO SCH ×3 (08:08→20:31)
[2021-05-09] MEDS: FUROSEMIDE 20 MG TABLET PO SCH (08:09)
[2021-05-09] MEDS: PANTOPRAZOLE SODIUM 40 MG/VIAL IVP SCH ×2 (08:09→20:32)
[2021-05-09] MEDS: SPIRONOLACTONE 50 MG TABLET PO SCH (08:09)
[2021-05-09 08:46] LABS: PLATELET COUNT (AUTO) 90 K/uL (150-450)
[2021-05-09 09:30] LABS: PROTHROMBIN TIME 24.3 SEC (9.4-11.6)
[2021-05-09 09:31] LABS: INR 2.4 (0.9-1.1)
[2021-05-09 11:26] LABS: HEMOGLOBIN 6.9 g/dL (13.5-17.5)
[2021-05-09 11:27] LABS: HEMATOCRIT 20.1 % (41-53)
[2021-05-09] MEDS ORDERED: SODIUM CHLORIDE 0.9% 250 ML IV ONE (13:22)
[2021-05-09 17:52] LABS: HEMATOCRIT 24.6 % (41-53); HEMOGLOBIN 8.2 g/dL (13.5-17.5)
[2021-05-09] MEDS: MAGNESIUM SULFATE 2 GM/WATER 50 ML IV PRN (18:44)
[2021-05-09] MEDS: CefTRIAXone 1 GM/DEXTROSE 50 ML IV SCH (20:32)
[2021-05-09 23:01] LABS: HEMATOCRIT 23.9 % (41-53)
[2021-05-10 01:48] VITALS: BP 118/79
[2021-05-10 07:04] LABS: BASOPHILS % (AUTO) 0.6 % (0.0-2.0); EOSINOPHILS % (AUTO) 3.3 % (1.0-6.0); HEMOGLOBIN 7.4 g/dL (13.5-17.5); LYMPHOCYTES # (AUTO) 2.8 K/uL (1.0-4.8); LYMPHOCYTES % (AUTO) 19.9 % (22.0-44.0); MEAN CORPUSCULAR HGB CONC 33.6 G/dL (31.0-37.0); MEAN CORPUSCULAR VOLUME 95 fL (80-100); MONOCYTES # (AUTO) 1.6 K/uL (0.1-1.0); MONOCYTES % (AUTO) 11.6 % (2.0-9.0); NEUTROPHILS % (AUTO) 64.6 % (40.0-70.0); RED BLOOD CELL COUNT(AUTO) 2.31 MIL/uL (4.50-5.90); RED CELL DISTRIBUTION WIDTH 18.3 % (11.5-14.5)
[2021-05-10 07:24] LABS: ALANINE AMINOTRANSFERASE 24 U/L (12-78); ALBUMIN 2.5 g/dL (3.4-5.0); ALKALINE PHOSPHATASE 86 U/L (46-116); ANION GAP 9 mmol/L (8-16); ASPARTATE AMINOTRANSFERASE 49 U/L (15-37); BILIRUBIN,TOTAL 6.3 mg/dL (0.1-1.0); CALCIUM, TOTAL 7.9 mg/dL (8.8-10.5); CARBON DIOXIDE 22 mmol/L (22-29); CHLORIDE 107 mmol/L (98-107); CREATININE 0.94 mg/dL (0.60-1.30); GLOMERULAR FILTR. RATE CALC > 60 mL/min (>60); GLUCOSE,RANDOM 206 mg/dL (70-110); POTASSIUM 4.2 mmol/L (3.5-5.1); SODIUM SERUM 138 mmol/L (136-145); TOTAL PROTEIN, SERUM 6.2 g/dL (6.4-8.2); UREA NITROGEN, BLOOD 8 mg/dL (7-18)
[2021-05-10 07:39] VITALS: BP 110/70
[2021-05-10 08:03] LABS: PLATELET COUNT (AUTO) 91 K/uL (150-450)
[2021-05-10] MEDS: SPIRONOLACTONE 50 MG TABLET PO SCH (08:54)
[2021-05-10] MEDS: PROPRANOLOL HCL 10 MG TABLET PO SCH ×2 (08:54→16:13)
[2021-05-10] MEDS: RIFAXIMIN 550 MG TABLET PO SCH ×3 (08:54→20:53)
[2021-05-10] MEDS: LACTULOSE 20 GM/30 ML SOLUTION UDCUP PO SCH ×4 (08:56→20:52)
[2021-05-10] MEDS: FUROSEMIDE 20 MG TABLET PO SCH (08:56)
[2021-05-10] MEDS: PANTOPRAZOLE SODIUM 40 MG/VIAL IVP SCH ×2 (08:56→20:53)
[2021-05-10 11:27] VITALS: BP 119/66
[2021-05-10] MEDS: MAGNESIUM SULFATE 1 GM in DEXTROSE 5%-WATER 50 ML IV SCH (11:40)
[2021-05-10 15:35] VITALS: BP 117/77
[2021-05-10] MEDS: MetroNIDAZOLE 500 MG/NACL 100 ML IV SCH ×2 (16:13→22:58)
[2021-05-10 19:35] VITALS: BP 139/82
[2021-05-10] MEDS ORDERED: SODIUM CHLORIDE 0.9% 250 ML IV ONE (20:49)
[2021-05-10] MEDS: CefTRIAXone 1 GM/DEXTROSE 50 ML IV SCH (20:53)
[2021-05-11] VITALS (10 sets, daily range): BP systolic 102–134; BP diastolic 62–94
[2021-05-11] MEDS: MetroNIDAZOLE 500 MG/NACL 100 ML IV SCH ×4 (05:07→23:17)
[2021-05-11] MEDS: MAGNESIUM SULFATE 1 GM in DEXTROSE 5%-WATER 50 ML IV SCH (05:09)
[2021-05-11] MEDS ORDERED: SODIUM CHLORIDE 0.9% 250 ML IV ONE (05:56)
[2021-05-11] MEDS ORDERED: MAGNESIUM SULFATE 1 GM in DEXTROSE 5%-WATER 50 ML IV SCH (06:00)
[2021-05-11 06:20] LABS: BASOPHILS % (AUTO) 0.8 % (0.0-2.0); EOSINOPHILS % (AUTO) 3.8 % (1.0-6.0); HEMATOCRIT 21.3 % (41-53); HEMOGLOBIN 7.1 g/dL (13.5-17.5); LYMPHOCYTES # (AUTO) 2.8 K/uL (1.0-4.8); LYMPHOCYTES % (AUTO) 19.4 % (22.0-44.0); MEAN CORPUSCULAR HEMOGLOBIN 31.7 pg (26.0-34.0); MEAN CORPUSCULAR HGB CONC 33.4 G/dL (31.0-37.0); MEAN CORPUSCULAR VOLUME 95 fL (80-100); MONOCYTES % (AUTO) 13.7 % (2.0-9.0); NEUTROPHILS % (AUTO) 62.3 % (40.0-70.0); PLATELET COUNT (AUTO) 75 K/uL (150-450); RED BLOOD CELL COUNT(AUTO) 2.25 MIL/uL (4.50-5.90); RED CELL DISTRIBUTION WIDTH 18.9 % (11.5-14.5)
[2021-05-11 06:43] LABS: INR 2.5 (0.9-1.1); PROTHROMBIN TIME 25.1 SEC (9.4-11.6)
[2021-05-11 06:50] LABS: ALANINE AMINOTRANSFERASE 24 U/L (12-78); ALBUMIN 2.4 g/dL (3.4-5.0); ALKALINE PHOSPHATASE 90 U/L (46-116); ANION GAP 5 mmol/L (8-16); ASPARTATE AMINOTRANSFERASE 49 U/L (15-37); BILIRUBIN,TOTAL 5.9 mg/dL (0.1-1.0); CARBON DIOXIDE 22 mmol/L (22-29); CHLORIDE 106 mmol/L (98-107); CREATININE 0.91 mg/dL (0.60-1.30); GLOMERULAR FILTR. RATE CALC > 60 mL/min (>60); GLUCOSE,RANDOM 177 mg/dL (70-110); PHOSPHORUS 3.3 mg/dL (2.5-4.9); POTASSIUM 4.4 mmol/L (3.5-5.1); SODIUM SERUM 133 mmol/L (136-145); TOTAL PROTEIN, SERUM 6.3 g/dL (6.4-8.2); UREA NITROGEN, BLOOD 9 mg/dL (7-18)
[2021-05-11] MEDS ORDERED: SODIUM CHLORIDE 0.9% 0 ML IV ONE (08:15)
[2021-05-11] MEDS ORDERED: FUROSEMIDE 40 MG TABLET PO SCH (09:00)
[2021-05-11] MEDS: THIAMINE 100 MG TABLET PO SCH (09:02)
[2021-05-11] MEDS: PROPRANOLOL HCL 10 MG TABLET PO SCH ×4 (09:03→23:30)
[2021-05-11] MEDS: FOLIC ACID 1 MG TABLET PO SCH (09:03)
[2021-05-11] MEDS: SPIRONOLACTONE 50 MG TABLET PO SCH (09:03)
[2021-05-11] MEDS: LACTULOSE 20 GM/30 ML SOLUTION UDCUP PO SCH ×4 (09:04→20:42)
[2021-05-11] MEDS: PANTOPRAZOLE SODIUM 40 MG/VIAL IVP SCH ×2 (09:04→20:42)
[2021-05-11] MEDS: METHYL SALICYLATE/MENTHOL 85 GM CREAM TP PRN ×2 (09:04→20:37)
[2021-05-11] MEDS: RIFAXIMIN 550 MG TABLET PO SCH ×3 (09:04→20:42)
[2021-05-11] MEDS: MAGNESIUM SULFATE 2 GM/WATER 50 ML IV PRN (12:10)
[2021-05-11] MEDS ORDERED: MIDAZOLAM HCL 2 MG/2 ML VIAL ONE (13:00)
[2021-05-11] MEDS ORDERED: FentaNYL CITRATE PF 100 MCG/2 ML VIAL ONE (13:00)
[2021-05-11] MEDS: FUROSEMIDE 40 MG/4 ML VIAL IVP SCH (20:42)
[2021-05-11] MEDS: CefTRIAXone 1 GM/DEXTROSE 50 ML IV SCH (20:42)
[2021-05-11] MEDS: MORPHINE SULFATE 4 MG/ML SYRINGE IVP PRN (23:30)
[2021-05-12 00:20] VITALS: BP 120/75
[2021-05-12 04:12] VITALS: BP 104/78
[2021-05-12] MEDS: MAGNESIUM SULFATE 1 GM in DEXTROSE 5%-WATER 50 ML IV SCH (05:54)
[2021-05-12] MEDS: MORPHINE SULFATE 4 MG/ML SYRINGE IVP PRN ×4 (06:00→20:19)
[2021-05-12 07:25] VITALS: BP 114/74
[2021-05-12 07:32] LABS: ALBUMIN 2.9 g/dL (3.4-5.0); ANION GAP 7 mmol/L (8-16); CALCIUM, TOTAL 8.4 mg/dL (8.8-10.5); CARBON DIOXIDE 24 mmol/L (22-29); CHLORIDE 106 mmol/L (98-107); CREATININE 1.05 mg/dL (0.60-1.30); GLOMERULAR FILTR. RATE CALC > 60 mL/min (>60); GLUCOSE,RANDOM 164 mg/dL (70-110); POTASSIUM 4.3 mmol/L (3.5-5.1); SODIUM SERUM 137 mmol/L (136-145); UREA NITROGEN, BLOOD 10 mg/dL (7-18)
[2021-05-12] MEDS: MetroNIDAZOLE 500 MG/NACL 100 ML IV SCH ×2 (08:28→15:12)
[2021-05-12] MEDS: LACTULOSE 20 GM/30 ML SOLUTION UDCUP PO SCH ×4 (09:00→20:16)
[2021-05-12] MEDS: PANTOPRAZOLE SODIUM 40 MG/VIAL IVP SCH ×2 (09:14→20:16)
[2021-05-12] MEDS: FOLIC ACID 1 MG TABLET PO SCH (09:14)
[2021-05-12] MEDS: SPIRONOLACTONE 50 MG TABLET PO SCH (09:14)
[2021-05-12] MEDS: PROPRANOLOL HCL 10 MG TABLET PO SCH ×2 (09:14→15:12)
[2021-05-12] MEDS: THIAMINE 100 MG TABLET PO SCH (09:14)
[2021-05-12] MEDS: FUROSEMIDE 40 MG/4 ML VIAL IVP SCH ×2 (09:14→20:16)
[2021-05-12] MEDS: RIFAXIMIN 550 MG TABLET PO SCH ×3 (09:14→20:16)
[2021-05-12 11:12] VITALS: BP 112/81
[2021-05-12 12:22] LABS: BASOPHILS % (AUTO) 1.3 % (0.0-2.0); HEMATOCRIT 21.4 % (41-53); HEMOGLOBIN 7.2 g/dL (13.5-17.5); LYMPHOCYTES # (AUTO) 3.1 K/uL (1.0-4.8); LYMPHOCYTES % (AUTO) 21.1 % (22.0-44.0); MEAN CORPUSCULAR HEMOGLOBIN 32.1 pg (26.0-34.0); MEAN CORPUSCULAR HGB CONC 33.7 G/dL (31.0-37.0); MEAN CORPUSCULAR VOLUME 95 fL (80-100); MONOCYTES # (AUTO) 1.8 K/uL (0.1-1.0); MONOCYTES % (AUTO) 12.1 % (2.0-9.0); NEUTROPHILS % (AUTO) 61.5 % (40.0-70.0); PLATELET COUNT (AUTO) 121 K/uL (150-450); RED BLOOD CELL COUNT(AUTO) 2.24 MIL/uL (4.50-5.90)
[2021-05-12 15:05] VITALS: BP 106/74
[2021-05-12] MEDS ORDERED: SODIUM CHLORIDE 0.9% 500 ML IV ONE (16:14)
[2021-05-12 16:15] LABS: APPEARANCE,URINE CLEAR (CLEAR); BILIRUBIN,URINE NEGATIVE (NEGATIVE); GLUCOSE, URINE (UA) NEGATIVE (NEGATIVE); KETONES,URINE NEGATIVE (NEGATIVE); LEUKOCYTE ESTERASE ,URINE TRACE (NEGATIVE); NITRATE,URINE NEGATIVE (NEGATIVE); OCCULT BLOOD,URINE NEGATIVE (NEGATIVE); PROTEIN,URINE NEGATIVE (NEGATIVE); UROBILINOGEN,URINE 0.2 mg/dL (<=1.0)
[2021-05-12 16:27] LABS: BACTERIA,URINE None Seen /HPF (None Seen); RBC,URINE None Seen /HPF (0-2); SQUAMOUS EPITHELIAL CELL,UR Few /LPF (None Seen); WBC,URINE 0-2 /HPF (0-5); YEAST,URINE None Seen /HPF (None Seen)
[2021-05-12 19:52] VITALS: BP 135/72
[2021-05-12] MEDS: CefTRIAXone 1 GM/DEXTROSE 50 ML IV SCH (20:16)
[2021-05-13] VITALS (12 sets, daily range): BP systolic 96–139; BP diastolic 56–74
[2021-05-13] MEDS: PROPRANOLOL HCL 10 MG TABLET PO SCH ×4 (00:05→23:15)
[2021-05-13] MEDS: MetroNIDAZOLE 500 MG/NACL 100 ML IV SCH ×4 (00:06→22:34)
[2021-05-13 06:35] LABS: CALCIUM, TOTAL 8.2 mg/dL (8.8-10.5); CREATININE 1.56 mg/dL (0.60-1.30); MAGNESIUM 1.6 mg/dL (1.80-2.40); POTASSIUM 4.8 mmol/L (3.5-5.1)
[2021-05-13] MEDS: MAGNESIUM SULFATE 1 GM in DEXTROSE 5%-WATER 50 ML IV SCH (06:46)
[2021-05-13] MEDS ORDERED: SODIUM CHLORIDE 0.9% 250 ML IV ONE ×2 (06:48→21:34)
[2021-05-13 06:52] LABS: INR 2.2 (0.9-1.1)
[2021-05-13] MEDS: THIAMINE 100 MG TABLET PO SCH (09:34)
[2021-05-13] MEDS: LEVOFLOXACIN 500 MG TABLET PO SCH (09:34)
[2021-05-13] MEDS: RIFAXIMIN 550 MG TABLET PO SCH ×3 (09:35→21:10)
[2021-05-13] MEDS: FOLIC ACID 1 MG TABLET PO SCH (09:35)
[2021-05-13] MEDS: SPIRONOLACTONE 50 MG TABLET PO SCH (09:35)
[2021-05-13] MEDS: LACTULOSE 20 GM/30 ML SOLUTION UDCUP PO SCH ×4 (09:36→21:10)
[2021-05-13] MEDS: PANTOPRAZOLE SODIUM 40 MG/VIAL IVP SCH ×2 (09:36→21:11)
[2021-05-13] MEDS: MAGNESIUM OXIDE 400 MG TABLET PO PRN ×3 (09:36→17:13)
[2021-05-13] MEDS: MORPHINE SULFATE 4 MG/ML SYRINGE IVP PRN ×3 (09:50→23:15)
[2021-05-13] MEDS ORDERED: SODIUM CHLORIDE 0.9% 500 ML IV ONE (10:47)
[2021-05-13] MEDS: ALBUMIN HUMAN 25%-25GM/100ML 100 ML IV SCH ×2 (10:54→17:07)
[2021-05-13 15:01] LABS: BASOPHILS % (AUTO) 0.2 % (0.0-2.0); EOSINOPHILS % (AUTO) 2.9 % (1.0-6.0); LYMPHOCYTES # (AUTO) 2.1 K/uL (1.0-4.8); LYMPHOCYTES % (AUTO) 18.6 % (22.0-44.0); MEAN CORPUSCULAR HEMOGLOBIN 31.8 pg (26.0-34.0); MEAN CORPUSCULAR HGB CONC 33.2 G/dL (31.0-37.0); MEAN CORPUSCULAR VOLUME 96 fL (80-100); MONOCYTES # (AUTO) 1.7 K/uL (0.1-1.0); MONOCYTES % (AUTO) 14.4 % (2.0-9.0); NEUTROPHILS # (AUTO) 7.3 K/uL (1.8-7.7); NEUTROPHILS % (AUTO) 63.9 % (40.0-70.0); PLATELET COUNT (AUTO) 116 K/uL (150-450); RED BLOOD CELL COUNT(AUTO) 1.87 MIL/uL (4.50-5.90); RED CELL DISTRIBUTION WIDTH 19.8 % (11.5-14.5)
[2021-05-13 15:10] LABS: CALCIUM, TOTAL 8.1 mg/dL (8.8-10.5); CREATININE 1.61 mg/dL (0.60-1.30); HEMATOCRIT 17.9 % (41-53); POTASSIUM 4.5 mmol/L (3.5-5.1)
[2021-05-13 15:18] LABS: ALBUMIN 2.8 g/dL (3.4-5.0); BILIRUBIN,TOTAL 6.1 mg/dL (0.1-1.0); TOTAL PROTEIN, SERUM 6.6 g/dL (6.4-8.2)
[2021-05-13] MEDS: CefTRIAXone 1 GM/DEXTROSE 50 ML IV SCH (21:10)
[2021-05-14] VITALS (10 sets, daily range): BP systolic 94–122; BP diastolic 59–92
[2021-05-14] MEDS: ALBUMIN HUMAN 25%-25GM/100ML 100 ML IV SCH (01:22)
[2021-05-14] MEDS: MAGNESIUM SULFATE 1 GM in DEXTROSE 5%-WATER 50 ML IV SCH (05:19)
[2021-05-14] MEDS: MetroNIDAZOLE 500 MG/NACL 100 ML IV SCH ×3 (06:06→22:10)
[2021-05-14 06:39] LABS: ALBUMIN 3.1 g/dL (3.4-5.0); CALCIUM, TOTAL 8.2 mg/dL (8.8-10.5); CREATININE 1.59 mg/dL (0.60-1.30); MAGNESIUM 1.6 mg/dL (1.80-2.40); POTASSIUM 4.5 mmol/L (3.5-5.1); TOTAL PROTEIN, SERUM 6.6 g/dL (6.4-8.2)
[2021-05-14 06:57] LABS: INR 2.4 (0.9-1.1); PROTHROMBIN TIME 24.6 SEC (9.4-11.6)
[2021-05-14 06:59] LABS: BASOPHILS % (AUTO) 0.7 % (0.0-2.0); EOSINOPHILS % (AUTO) 3.1 % (1.0-6.0); LYMPHOCYTES % (AUTO) 18.8 % (22.0-44.0); MEAN CORPUSCULAR HEMOGLOBIN 33.3 pg (26.0-34.0); MEAN CORPUSCULAR HGB CONC 34.6 G/dL (31.0-37.0); MEAN CORPUSCULAR VOLUME 96 fL (80-100); MONOCYTES # (AUTO) 1.5 K/uL (0.1-1.0); MONOCYTES % (AUTO) 13.7 % (2.0-9.0); NEUTROPHILS # (AUTO) 6.9 K/uL (1.8-7.7); NEUTROPHILS % (AUTO) 63.7 % (40.0-70.0); PLATELET COUNT (AUTO) 102 K/uL (150-450); RED BLOOD CELL COUNT(AUTO) 1.98 MIL/uL (4.50-5.90); RED CELL DISTRIBUTION WIDTH 18.1 % (11.5-14.5)
[2021-05-14 07:16] LABS: HEMOGLOBIN 6.6 g/dL (13.5-17.5)
[2021-05-14] MEDS: RIFAXIMIN 550 MG TABLET PO SCH ×3 (09:48→20:22)
[2021-05-14] MEDS: PANTOPRAZOLE SODIUM 40 MG/VIAL IVP SCH ×2 (09:48→20:22)
[2021-05-14] MEDS: FUROSEMIDE 40 MG TABLET PO SCH (09:48)
[2021-05-14] MEDS: FOLIC ACID 1 MG TABLET PO SCH (09:48)
[2021-05-14] MEDS: LEVOFLOXACIN 500 MG TABLET PO SCH (09:48)
[2021-05-14] MEDS: THIAMINE 100 MG TABLET PO SCH (09:48)
[2021-05-14] MEDS: SPIRONOLACTONE 50 MG TABLET PO SCH (09:48)
[2021-05-14] MEDS: LACTULOSE 20 GM/30 ML SOLUTION UDCUP PO SCH ×4 (09:48→20:33)
[2021-05-14] MEDS: PROPRANOLOL HCL 10 MG TABLET PO SCH ×3 (09:49→23:38)
[2021-05-14] MEDS: MORPHINE SULFATE 4 MG/ML SYRINGE IVP PRN ×2 (11:33→20:22)
[2021-05-14] MEDS: CefTRIAXone 1 GM/DEXTROSE 50 ML IV SCH (20:21)
[2021-05-15 00:10] VITALS: BP 125/76
[2021-05-15 05:44] VITALS: BP 124/76
[2021-05-15] MEDS: MAGNESIUM SULFATE 1 GM in DEXTROSE 5%-WATER 50 ML IV SCH (05:50)
[2021-05-15] MEDS: MetroNIDAZOLE 500 MG/NACL 100 ML IV SCH ×2 (06:00→15:53)
[2021-05-15 06:51] LABS: BASOPHILS % (AUTO) 0.7 % (0.0-2.0); EOSINOPHILS % (AUTO) 2.6 % (1.0-6.0); HEMATOCRIT 24.2 % (41-53); HEMOGLOBIN 8.3 g/dL (13.5-17.5); LYMPHOCYTES # (AUTO) 1.8 K/uL (1.0-4.8); LYMPHOCYTES % (AUTO) 13.9 % (22.0-44.0); MEAN CORPUSCULAR HEMOGLOBIN 32.2 pg (26.0-34.0); MEAN CORPUSCULAR HGB CONC 34.4 G/dL (31.0-37.0); MEAN CORPUSCULAR VOLUME 94 fL (80-100); MONOCYTES # (AUTO) 1.9 K/uL (0.1-1.0); MONOCYTES % (AUTO) 15.1 % (2.0-9.0); NEUTROPHILS # (AUTO) 8.6 K/uL (1.8-7.7); NEUTROPHILS % (AUTO) 67.7 % (40.0-70.0); PLATELET COUNT (AUTO) 106 K/uL (150-450); RED BLOOD CELL COUNT(AUTO) 2.59 MIL/uL (4.50-5.90); RED CELL DISTRIBUTION WIDTH 17.5 % (11.5-14.5)
[2021-05-15 06:59] LABS: ALBUMIN 2.9 g/dL (3.4-5.0); BILIRUBIN,TOTAL 8.8 mg/dL (0.1-1.0); CALCIUM, TOTAL 8.3 mg/dL (8.8-10.5); CREATININE 1.52 mg/dL (0.60-1.30); MAGNESIUM 1.8 mg/dL (1.80-2.40); POTASSIUM 4.8 mmol/L (3.5-5.1); TOTAL PROTEIN, SERUM 6.6 g/dL (6.4-8.2)
[2021-05-15 07:07] LABS: PROTHROMBIN TIME 23.5 SEC (9.4-11.6)
[2021-05-15 07:08] LABS: INR 2.4 (0.9-1.1)
[2021-05-15 07:42] VITALS: BP 109/60
[2021-05-15] MEDS: FOLIC ACID 1 MG TABLET PO SCH (08:25)
[2021-05-15] MEDS: LEVOFLOXACIN 500 MG TABLET PO SCH (08:25)
[2021-05-15] MEDS: THIAMINE 100 MG TABLET PO SCH (08:26)
[2021-05-15] MEDS: RIFAXIMIN 550 MG TABLET PO SCH ×2 (08:26→16:28)
[2021-05-15] MEDS: FUROSEMIDE 40 MG TABLET PO SCH (08:26)
[2021-05-15] MEDS: SPIRONOLACTONE 50 MG TABLET PO SCH (08:27)
[2021-05-15] MEDS: PROPRANOLOL HCL 10 MG TABLET PO SCH ×2 (08:27→16:29)
[2021-05-15] MEDS: PANTOPRAZOLE SODIUM 40 MG/VIAL IVP SCH (08:27)
[2021-05-15] MEDS: LACTULOSE 20 GM/30 ML SOLUTION UDCUP PO SCH ×2 (08:27→13:00)
[2021-05-15 12:02] VITALS: BP 110/61
[2021-05-15] MEDS ORDERED: TraMADol HCL 50 MG TABLET PO ONE (14:30)
[2021-05-15] MEDS ORDERED: SPIR50TA PO (14:33)
[2021-05-15] MEDS ORDERED: THIA100T80 PO (14:33)
[2021-05-15] MEDS ORDERED: FOLI-130 PO (14:33)
[2021-05-15] MEDS ORDERED: FURO40 PO (14:33)
[2021-05-15] MEDS ORDERED: FERR-82 PO (14:33)
[2021-05-15] MEDS ORDERED: RIFAX550 PO (14:33)
[2021-05-15] MEDS ORDERED: LEVO-72 PO (14:33)
[2021-05-15] MEDS ORDERED: METR500 PO (14:33)
[2021-05-15] MEDS ORDERED: LACT30L PO (14:33)
[2021-05-15] MEDS ORDERED: PANT-31 PO (14:33)
[2021-05-15] MEDS ORDERED: PROP10TA72 PO (14:33)
[2021-05-15 15:44] VITALS: BP 116/75
== END 2021-05-15 18:00 | disposition home or self-care (01) | DRG 241 ==
LOC: EMS 16:15 → 5S 20:04
PROVIDERS: ADMIT Internal Medicine; ATTEND Internal Medicine
PROC: 30233N1 Transfusion of Nonautologous Red Blood Cells into Peripheral Vein, Percutaneous Approach (ICD-10-PCS; principal; 2021-04-27)
PROC: 0DB98ZX Excision of Duodenum, Via Natural or Artificial Opening Endoscopic, Diagnostic (ICD-10-PCS; 2021-04-28)
PROC: 0DB68ZX Excision of Stomach, Via Natural or Artificial Opening Endoscopic, Diagnostic (ICD-10-PCS; 2021-04-28)
PROC: 30233K1 Transfusion of Nonautologous Frozen Plasma into Peripheral Vein, Percutaneous Approach (ICD-10-PCS; 2021-05-01)
PROC: 0W9G3ZZ Drainage of Peritoneal Cavity, Percutaneous Approach (ICD-10-PCS; 2021-05-07)
PROC: 0W3P8ZZ Control Bleeding in Gastrointestinal Tract, Via Natural or Artificial Opening Endoscopic (ICD-10-PCS; 2021-05-08)
DX: K26.0 Acute duodenal ulcer with hemorrhage (principal); D61.818 Other pancytopenia; K70.40 Alcoholic hepatic failure without coma; K85.90 Acute pancreatitis without necrosis or infection, unspecified; E43 Unspecified severe protein-calorie malnutrition; N17.9 Acute kidney failure, unspecified; K29.81 Duodenitis with bleeding; N18.4 Chronic kidney disease, stage 4 (severe); D68.9 Coagulation defect, unspecified; E87.2 Acidosis; E87.1 Hypo-osmolality and hyponatremia; K70.31 Alcoholic cirrhosis of liver with ascites; D62 Acute posthemorrhagic anemia; K76.6 Portal hypertension; K25.9 Gastric ulcer, unspecified as acute or chronic, without hemorrhage or perforation; K31.89 Other diseases of stomach and duodenum; E83.42 Hypomagnesemia; E87.6 Hypokalemia; K29.70 Gastritis, unspecified, without bleeding; R31.0 Gross hematuria; I85.10 Secondary esophageal varices without bleeding; Z53.20 Procedure and treatment not carried out because of patient's decision for unspecified reasons; D50.9 Iron deficiency anemia, unspecified; Z20.822 Contact with and (suspected) exposure to COVID-19; K57.90 Diverticulosis of intestine, part unspecified, without perforation or abscess without bleeding; K64.9 Unspecified hemorrhoids; K62.6 Ulcer of anus and rectum; Z87.19 Personal history of other diseases of the digestive system; Z90.49 Acquired absence of other specified parts of digestive tract; Z79.899 Other long term (current) drug therapy; Z88.0 Allergy status to penicillin; Z88.8 Allergy status to other drugs, medicaments and biological substances
CPT/HCPCS: 36430; 36600; 49083; 51702; 70450; 71045; 76705; 76770; 76942; 80048; 80053; 80074; 80076; 80361; 81001; 81003; 82040; 82042; 82105; 82140; 82247; 82271; 82436; 82550; 82570; 82805; 82945; 82962; 83605; 83690; 83735; 83880; 83935; 84100; 84132; 84145; 84156; 84157; 84300; 84484; 84540; 85014; 85018; 85025; 85362; 85384; 85610; 85730; 86850; 86900; 86901; 86923; 86927; 87040; 87070; 88305; 88312; 88313; 89051; 93005; 93306; 99291; C9113; G0378; G0480; G0481; J0696; J1940; J2060; J2250; J2270; J2354; J2405; J2704; J3010; J3430; J3475; J3480; J3490; J7030; J7040; J7050; J7060; P9016; P9017; P9046; 36415-L1; 36415-TC; X7700

== ENCOUNTER 2021-07-08 17:59 | Inpatient (IN) | payer OTHER ==
[~2021-07-08] VITALS: Ht 175.3 cm; Wt 63.8 kg
[2021-07-08] MEDS: PANTOPRAZOLE SODIUM 80 MG in SODIUM CHLORIDE 0.9% 100 ML IV SCH (01:25)
[~2021-07-08 17:59] MED LIST changes: +FERR-82 PO; +FOLI-130 PO; +FURO40 PO; +LACT30L PO; +LEVO-72 PO; +METR500 PO; +PROP10TA72 PO; +RIFAX550 PO; +SPIR50TA PO; +THIA100T80 PO
[2021-07-08 19:29] LABS: BASOPHILS % (AUTO) 1.2 % (0.0-2.0); EOSINOPHILS % (AUTO) 0.7 % (1.0-6.0); HEMATOCRIT 27.6 % (41-53); HEMOGLOBIN 9.4 g/dL (13.5-17.5); LYMPHOCYTES # (AUTO) 1.9 K/uL (1.0-4.8); MEAN CORPUSCULAR HEMOGLOBIN 37.2 pg (26.0-34.0); MEAN CORPUSCULAR VOLUME 110 fL (80-100); MONOCYTES # (AUTO) 1.3 K/uL (0.1-1.0); NEUTROPHILS # (AUTO) 5.6 K/uL (1.8-7.7); NEUTROPHILS % (AUTO) 62.1 % (40.0-70.0); PLATELET COUNT (AUTO) 162 K/uL (150-450); RED BLOOD CELL COUNT(AUTO) 2.51 MIL/uL (4.50-5.90); RED CELL DISTRIBUTION WIDTH 15.7 % (11.5-14.5)
[2021-07-08 19:42] LABS: INR 1.9 (0.9-1.1); PROTHROMBIN TIME 18.8 SEC (9.4-11.6)
[2021-07-08 19:47] LABS: BILIRUBIN,TOTAL 9.1 mg/dL (0.1-1.0); CALCIUM, TOTAL 9.7 mg/dL (8.8-10.5); CREATININE 1.57 mg/dL (0.60-1.30); TOTAL PROTEIN, SERUM 9.6 g/dL (6.4-8.2)
[2021-07-08 20:04] LABS: POTASSIUM 6.9 mmol/L (3.5-5.1)
[2021-07-08] MEDS ORDERED: DEXTROSE 5%-0.45% SODIUM CHL 1,000 ML IV PRN ×2 (20:15→20:45)
[2021-07-08] MEDS ORDERED: POTASSIUM CHLORIDE 40 MEQ in SODIUM CHLORIDE 0.45% 1,000 ML IV PRN ×2 (20:15→20:45)
[2021-07-08] MEDS ORDERED: DEXTROSE 50%-WATER 25 GM/50 ML SYRINGE IVP PRN ×2 (20:15→20:45)
[2021-07-08] MEDS ORDERED: INSULIN REGULAR, HUMAN 100 UNITS in SODIUM CHLORIDE 0.9% 99 ML IV PRN ×4 (20:15→20:45)
[2021-07-08] MEDS ORDERED: INSULIN REGULAR, HUMAN 100 UNITS/ML IVP ONE ×2 (20:15→20:45)
[2021-07-08] MEDS ORDERED: INSULIN REGULAR, HUMAN 100 UNITS/ML IVP PRN (20:15)
[2021-07-08] MEDS ORDERED: SODIUM CHLORIDE 0.9% 1,000 ML IV SCH ×2 (20:15→20:45)
[2021-07-08] MEDS ORDERED: SODIUM CHLORIDE 0.45% 1,000 ML IV PRN ×2 (20:15→20:45)
[2021-07-08] MEDS ORDERED: POTASSIUM CHL 20 MEQ/0.45% NS 1,000 ML IV PRN ×2 (20:15→20:45)
[2021-07-08] MEDS ORDERED: CALCIUM GLUCONATE 0.465 MEQ/ML 10 ML VIAL IVP ONE (20:30)
[2021-07-08 20:35] LABS: AMPHET/METH SCREEN,URINE NEGATIVE (NEGATIVE); BARBITURATE SCREEN, URINE NEGATIVE (NEGATIVE); BENZODIAZEPINES SCREEN,URINE NEGATIVE (NEGATIVE); CANNABINOID SCREEN,URINE NEGATIVE (NEGATIVE); COCAINE SCREEN,URINE NEGATIVE (NEGATIVE); METHADONE SCREEN, URINE NEGATIVE (NEGATIVE); OPIATE SCREEN,URINE NEGATIVE (NEGATIVE)
[2021-07-08 20:36] LABS: PHENCYCLIDINE SCREEN,URINE NEGATIVE (NEGATIVE)
[2021-07-08] MEDS ORDERED: ONDANSETRON HCL 4 MG/2 ML VIAL IVP PRN (20:45)
[2021-07-08] MEDS ORDERED: ALBUTEROL SULFATE 2.5 MG/0.5 ML NEB SOLUTION NEB ONE (20:45)
[2021-07-08] MEDS ORDERED: PANTOPRAZOLE SODIUM 40 MG/VIAL IVP SCH (21:00)
[2021-07-08] MEDS ORDERED: PHYTONADIONE 10 MG/1 ML AMP SQ ONE (21:15)
[2021-07-08] MEDS ORDERED: MAGNESIUM SULFATE 2 GM, MVI, ADULT NO.1 WITH VIT K 10 ML, THIAMINE 100 MG, FOLIC ACID 1... IV ONE ×5 (21:15)
[2021-07-08] MEDS ORDERED: CALCIUM GLUCONATE 100 MG/ML 10 ML IVP ONE (21:15)
[2021-07-08] MEDS ORDERED: PANTOPRAZOLE SODIUM 40 MG/VIAL IVP ONE (21:15)
[2021-07-08 21:16] LABS: GLUCOMETER DEV NAME(LOC) ERT.5; GLUCOSE,POINT OF CARE > 600 MG/DL (70-110)
[2021-07-08] MEDS ORDERED: 0.9% SODIUM CHLORIDE 5 ML NEB SOLUTION NEB ONE (21:29)
[2021-07-08 21:32] LABS: CREATININE 1.57 mg/dL (0.60-1.30)
[2021-07-08 21:47] LABS: POTASSIUM 6.7 mmol/L (3.5-5.1)
[2021-07-08 22:27] LABS: GLUCOMETER DEV NAME(LOC) ERT.5; GLUCOSE,POINT OF CARE 598 MG/DL (70-110)
[2021-07-08 22:29] LABS: COVID AG,FIA SOURCE NASOPHARYNGEAL
[2021-07-08] MEDS: LACTULOSE 20 GM/30 ML SOLUTION UDCUP PO SCH (22:42)
[2021-07-08] MEDS: INSULIN REGULAR, HUMAN 100 UNITS/ML IVP PRN (23:05)
[2021-07-08 23:16] LABS: GLUCOMETER DEV NAME(LOC) ERT.5; GLUCOSE,POINT OF CARE 586 MG/DL (70-110)
[2021-07-09 00:16] LABS: GLUCOMETER DEV NAME(LOC) ERT.5; GLUCOSE,POINT OF CARE 508 MG/DL (70-110)
[2021-07-09] MEDS: INSULIN REGULAR, HUMAN 100 UNITS/ML IVP PRN ×3 (00:20→02:37)
[2021-07-09 01:16] LABS: GLUCOMETER DEV NAME(LOC) ERT.5; GLUCOSE,POINT OF CARE 446 MG/DL (70-110)
[2021-07-09 01:55] LABS: HEMATOCRIT 26.1 % (41-53); HEMOGLOBIN 9.2 g/dL (13.5-17.5)
[2021-07-09 01:59] LABS: CALCIUM, TOTAL 9.5 mg/dL (8.8-10.5); CREATININE 1.52 mg/dL (0.60-1.30); POTASSIUM 4.8 mmol/L (3.5-5.1)
[2021-07-09 02:31] LABS: GLUCOMETER DEV NAME(LOC) ERT.5; GLUCOSE,POINT OF CARE 344 MG/DL (70-110)
[2021-07-09 03:26] LABS: GLUCOMETER DEV NAME(LOC) ERT.5; GLUCOSE,POINT OF CARE 290 MG/DL (70-110)
[2021-07-09] MEDS ORDERED: DEXTROSE 50%-WATER 25 GM/50 ML SYRINGE IVP PRN (03:30)
[2021-07-09] MEDS: INSULIN GLARGINE,HUM.REC.ANLOG 100 UNITS/ML SQ SCH ×2 (04:06→21:00)
[2021-07-09 05:34] LABS: ALBUMIN 2.7 g/dL (3.4-5.0); BILIRUBIN,TOTAL 7.9 mg/dL (0.1-1.0); CALCIUM, TOTAL 9.7 mg/dL (8.8-10.5); CREATININE 1.42 mg/dL (0.60-1.30); MAGNESIUM 2.5 mg/dL (1.80-2.40); TOTAL PROTEIN, SERUM 8.8 g/dL (6.4-8.2)
[2021-07-09 06:21] LABS: GLUCOMETER DEV NAME(LOC) ERT.5; GLUCOSE,POINT OF CARE 182 MG/DL (70-110)
[2021-07-09] MEDS: LACTULOSE 20 GM/30 ML SOLUTION UDCUP PO SCH ×2 (09:06→21:00)
[2021-07-09 09:20] VITALS: BP 136/62
[2021-07-09 11:09] LABS: INR 1.9 (0.9-1.1); PROTHROMBIN TIME 19.5 SEC (9.4-11.6)
[2021-07-09] MEDS: PANTOPRAZOLE SODIUM 80 MG in SODIUM CHLORIDE 0.9% 100 ML IV SCH ×2 (11:37→20:56)
[2021-07-09] MEDS: INSULIN LISPRO 100 UNITS/ML SQ PRN ×2 (11:39→17:41)
[2021-07-09 12:01] LABS: ALBUMIN 2.6 g/dL (3.4-5.0); BILIRUBIN,DIRECT 3.2 mg/dL (0.00-0.20); BILIRUBIN,TOTAL 8.5 mg/dL (0.1-1.0); TOTAL PROTEIN, SERUM 8.6 g/dL (6.4-8.2)
[2021-07-09 12:10] LABS: HEMATOCRIT 25.5 % (41-53)
[2021-07-09 12:53] VITALS: BP 134/68
[2021-07-09] MEDS ORDERED: SODIUM CHLORIDE 0.9% 1,000 ML IV ONE (13:15)
[2021-07-09 15:11] LABS: GLUCOMETER DEV NAME(LOC) 5S.1; GLUCOSE,POINT OF CARE 244 MG/DL (70-110)
[2021-07-09 16:15] VITALS: BP 129/64
[2021-07-09 19:28] VITALS: BP 95/57
[2021-07-09 23:32] VITALS: BP 112/51
[2021-07-09 23:51] LABS: GLUCOMETER DEV NAME(LOC) 5S.1; GLUCOSE,POINT OF CARE 198 MG/DL (70-110)
[2021-07-09 23:51] LABS: GLUCOMETER DEV NAME(LOC) 5S.1; GLUCOSE,POINT OF CARE 184 MG/DL (70-110)
[2021-07-10] MEDS ORDERED: LACTULOSE 20 GM/30 ML SOLUTION UDCUP PO ONE (04:00)
[2021-07-10 04:36] VITALS: BP 95/56
[2021-07-10 06:21] LABS: BASOPHILS % (AUTO) 1.3 % (0.0-2.0); EOSINOPHILS % (AUTO) 2.1 % (1.0-6.0); HEMATOCRIT 25.9 % (41-53); HEMOGLOBIN 9.3 g/dL (13.5-17.5); LYMPHOCYTES # (AUTO) 2.6 K/uL (1.0-4.8); LYMPHOCYTES % (AUTO) 26.3 % (22.0-44.0); MEAN CORPUSCULAR HEMOGLOBIN 37.3 pg (26.0-34.0); MEAN CORPUSCULAR HGB CONC 35.8 G/dL (31.0-37.0); MEAN CORPUSCULAR VOLUME 104 fL (80-100); MONOCYTES # (AUTO) 1.3 K/uL (0.1-1.0); MONOCYTES % (AUTO) 12.8 % (2.0-9.0); NEUTROPHILS # (AUTO) 5.8 K/uL (1.8-7.7); NEUTROPHILS % (AUTO) 57.5 % (40.0-70.0); PLATELET COUNT (AUTO) 142 K/uL (150-450); RED BLOOD CELL COUNT(AUTO) 2.49 MIL/uL (4.50-5.90); RED CELL DISTRIBUTION WIDTH 15.6 % (11.5-14.5)
[2021-07-10 06:28] LABS: INR 1.8 (0.9-1.1); PROTHROMBIN TIME 18.6 SEC (9.4-11.6)
[2021-07-10 06:39] LABS: ALANINE AMINOTRANSFERASE 51 U/L (12-78); ALBUMIN 2.6 g/dL (3.4-5.0); ALKALINE PHOSPHATASE 147 U/L (46-116); ANION GAP 5 mmol/L (8-16); ASPARTATE AMINOTRANSFERASE 88 U/L (15-37); BILIRUBIN,TOTAL 9.4 mg/dL (0.1-1.0); CALCIUM, TOTAL 9.5 mg/dL (8.8-10.5); CARBON DIOXIDE 26 mmol/L (22-29); CHLORIDE 95 mmol/L (98-107); CREATININE 1.19 mg/dL (0.60-1.30); GLOMERULAR FILTR. RATE CALC > 60 mL/min (>60); GLUCOSE,RANDOM 247 mg/dL (70-110); POTASSIUM 5.3 mmol/L (3.5-5.1); SODIUM SERUM 126 mmol/L (136-145); TOTAL PROTEIN, SERUM 9.2 g/dL (6.4-8.2); UREA NITROGEN, BLOOD 27 mg/dL (7-18)
[2021-07-10 08:01] LABS: GLUCOMETER DEV NAME(LOC) 5S.1; GLUCOSE,POINT OF CARE 266 MG/DL (70-110)
[2021-07-10 08:29] VITALS: BP 108/59
[2021-07-10] MEDS: LACTULOSE 20 GM/30 ML SOLUTION UDCUP PO SCH ×2 (10:00→21:07)
[2021-07-10] MEDS: PANTOPRAZOLE SODIUM 80 MG in SODIUM CHLORIDE 0.9% 100 ML IV SCH ×2 (10:00→21:05)
[2021-07-10] MEDS: INSULIN LISPRO 100 UNITS/ML SQ PRN ×3 (11:19→21:10)
[2021-07-10 11:45] VITALS: BP 100/53
[2021-07-10 15:59] VITALS: BP 115/58
[2021-07-10 18:17] LABS: APPEARANCE,URINE CLEAR (CLEAR); GLUCOSE, URINE (UA) >=1000 mg/dL (NEGATIVE); KETONES,URINE TRACE mg/dL (NEGATIVE); LEUKOCYTE ESTERASE ,URINE SMALL (NEGATIVE); NITRATE,URINE NEGATIVE (NEGATIVE); OCCULT BLOOD,URINE SMALL (NEGATIVE); PH,URINE 5.5 (5.0-8.0); PROTEIN,URINE NEGATIVE (NEGATIVE)
[2021-07-10 18:18] LABS: BILIRUBIN,URINE PRELIM. POSITIVE (NEGATIVE)
[2021-07-10 18:58] LABS: BACTERIA,URINE None Seen /HPF (None Seen); RBC,URINE 0-2 /HPF (0-2)
[2021-07-10 18:59] LABS: SQUAMOUS EPITHELIAL CELL,UR Rare /LPF (None Seen)
[2021-07-10 19:26] VITALS: BP 103/55
[2021-07-10 20:21] LABS: GLUCOMETER DEV NAME(LOC) 5N.1C; GLUCOSE,POINT OF CARE 362 MG/DL (70-110)
[2021-07-10] MEDS: INSULIN GLARGINE,HUM.REC.ANLOG 100 UNITS/ML SQ SCH (21:10)
[2021-07-10 22:13] LABS: CREATININE,URINE RANDOM 54.4 mg/dL (30.0-125.0)
[2021-07-10 22:19] LABS: HEMATOCRIT 21.3 % (41-53); HEMOGLOBIN 7.6 g/dL (13.5-17.5)
[2021-07-10 23:20] VITALS: BP 101/53
[2021-07-11 04:15] VITALS: BP 118/58
[2021-07-11 06:26] LABS: GLUCOMETER DEV NAME(LOC) 5N.1C; GLUCOSE,POINT OF CARE 336 MG/DL (70-110)
[2021-07-11] MEDS: PANTOPRAZOLE SODIUM 80 MG in SODIUM CHLORIDE 0.9% 100 ML IV SCH (06:56)
[2021-07-11] MEDS: INSULIN LISPRO 100 UNITS/ML SQ PRN ×4 (06:58→21:17)
[2021-07-11 07:12] LABS: BASOPHILS % (AUTO) 0.5 % (0.0-2.0); HEMOGLOBIN 7.9 g/dL (13.5-17.5); LYMPHOCYTES # (AUTO) 2.1 K/uL (1.0-4.8); LYMPHOCYTES % (AUTO) 24.7 % (22.0-44.0); MEAN CORPUSCULAR VOLUME 106 fL (80-100); MONOCYTES # (AUTO) 1.1 K/uL (0.1-1.0); MONOCYTES % (AUTO) 13.2 % (2.0-9.0); NEUTROPHILS # (AUTO) 5.1 K/uL (1.8-7.7); NEUTROPHILS % (AUTO) 59.6 % (40.0-70.0); RED BLOOD CELL COUNT(AUTO) 2.09 MIL/uL (4.50-5.90); RED CELL DISTRIBUTION WIDTH 15.5 % (11.5-14.5)
[2021-07-11 07:22] LABS: CALCIUM, TOTAL 8.8 mg/dL (8.8-10.5); CREATININE 1.24 mg/dL (0.60-1.30); POTASSIUM 5.4 mmol/L (3.5-5.1); THYROID STIMULATING HORMONE 0.83 uIU/mL (0.36-3.74)
[2021-07-11 07:47] LABS: PLATELET COUNT (AUTO) 120 K/uL (150-450)
[2021-07-11 07:52] VITALS: BP 126/63
[2021-07-11] MEDS ORDERED: SODIUM CHLORIDE 0.9% 1,000 ML ONE (08:18)
[2021-07-11] MEDS ORDERED: MIDAZOLAM HCL 5 MG/ML VIAL ONE (08:19)
[2021-07-11] MEDS ORDERED: FentaNYL CITRATE PF 100 MCG/2 ML VIAL ONE (08:19)
[2021-07-11] MEDS: LACTULOSE 20 GM/30 ML SOLUTION UDCUP PO SCH ×3 (09:00→14:40)
[2021-07-11] MEDS ORDERED: DEXTROSE 5%-0.45% SODIUM CHL 1,000 ML IV PRN (09:00)
[2021-07-11] MEDS: SODIUM ZIRCONIUM CYCLOSILICATE 5 GM POWDER PACKET PO SCH (11:00)
[2021-07-11 12:21] LABS: GLUCOMETER DEV NAME(LOC) 5S.1; GLUCOSE,POINT OF CARE 341 MG/DL (70-110)
[2021-07-11 13:09] VITALS: BP 98/52
[2021-07-11 16:05] VITALS: BP 98/58
[2021-07-11] MEDS: MIDODRINE HCL 5 MG TABLET PO SCH ×2 (16:36→21:13)
[2021-07-11 19:56] VITALS: BP 104/54
[2021-07-11 20:51] LABS: GLUCOMETER DEV NAME(LOC) 5N.3; GLUCOSE,POINT OF CARE 371 MG/DL (70-110)
[2021-07-11 20:56] LABS: GLUCOMETER DEV NAME(LOC) 5S.1; GLUCOSE,POINT OF CARE 356 MG/DL (70-110)
[2021-07-11 20:56] LABS: GLUCOMETER DEV NAME(LOC) 5S.1; GLUCOSE,POINT OF CARE 286 MG/DL (70-110)
[2021-07-11] MEDS ORDERED: INSULIN GLARGINE,HUM.REC.ANLOG 100 UNITS/ML SQ SCH (21:00)
[2021-07-12] VITALS: BP 101/57
[2021-07-12 04:12] VITALS: BP 96/48
[2021-07-12] MEDS ORDERED: PROPOFOL 1% 20 ML VIAL IVP ONE (06:06)
[2021-07-12] MEDS: INSULIN LISPRO 100 UNITS/ML SQ PRN ×4 (06:22→20:37)
[2021-07-12 06:31] LABS: GLUCOMETER DEV NAME(LOC) 5N.3; GLUCOSE,POINT OF CARE 337 MG/DL (70-110)
[2021-07-12 07:06] LABS: GLUCOMETER DEV NAME(LOC) 5S.2B; GLUCOSE,POINT OF CARE 330 MG/DL (70-110)
[2021-07-12 07:15] VITALS: BP 108/52
[2021-07-12 08:24] LABS: BASOPHILS % (AUTO) 0.9 % (0.0-2.0); HEMATOCRIT 21.4 % (41-53); HEMOGLOBIN 7.7 g/dL (13.5-17.5); LYMPHOCYTES # (AUTO) 2.4 K/uL (1.0-4.8); LYMPHOCYTES % (AUTO) 22.5 % (22.0-44.0); MEAN CORPUSCULAR HEMOGLOBIN 38.3 pg (26.0-34.0); MEAN CORPUSCULAR HGB CONC 36.1 G/dL (31.0-37.0); MEAN CORPUSCULAR VOLUME 106 fL (80-100); MONOCYTES # (AUTO) 1.4 K/uL (0.1-1.0); NEUTROPHILS # (AUTO) 6.7 K/uL (1.8-7.7); NEUTROPHILS % (AUTO) 61.6 % (40.0-70.0); RED BLOOD CELL COUNT(AUTO) 2.02 MIL/uL (4.50-5.90); RED CELL DISTRIBUTION WIDTH 15.3 % (11.5-14.5)
[2021-07-12 08:29] LABS: ANION GAP 5 mmol/L (8-16); CALCIUM, TOTAL 8.4 mg/dL (8.8-10.5); CARBON DIOXIDE 24 mmol/L (22-29); CHLORIDE 92 mmol/L (98-107); GLOMERULAR FILTR. RATE CALC > 60 mL/min (>60); GLUCOSE,RANDOM 332 mg/dL (70-110); POTASSIUM 5.4 mmol/L (3.5-5.1); UREA NITROGEN, BLOOD 20 mg/dL (7-18)
[2021-07-12 08:32] LABS: SODIUM SERUM 121 mmol/L (136-145)
[2021-07-12 08:43] LABS: PLATELET COUNT (AUTO) 103 K/uL (150-450)
[2021-07-12] MEDS: PANTOPRAZOLE SODIUM 40 MG DR TABLET PO SCH (08:52)
[2021-07-12] MEDS: MIDODRINE HCL 5 MG TABLET PO SCH ×3 (08:53→20:37)
[2021-07-12] MEDS: SODIUM ZIRCONIUM CYCLOSILICATE 5 GM POWDER PACKET PO SCH (10:00)
[2021-07-12 11:26] VITALS: BP 108/47
[2021-07-12] MEDS ORDERED: INSULIN LISPRO 100 UNITS/ML SQ ONE (12:00)
[2021-07-12 12:11] LABS: GLUCOMETER DEV NAME(LOC) 5S.2B; GLUCOSE,POINT OF CARE 416 MG/DL (70-110)
[2021-07-12 19:25] VITALS: BP 99/53
[2021-07-12] MEDS: LACTULOSE 20 GM/30 ML SOLUTION UDCUP PO SCH (20:37)
[2021-07-12] MEDS: SODIUM CHLORIDE 1 GM TABLET PO SCH (20:37)
[2021-07-12 20:41] LABS: GLUCOMETER DEV NAME(LOC) 5S.2B; GLUCOSE,POINT OF CARE 411 MG/DL (70-110)
[2021-07-12] MEDS ORDERED: INSULIN GLARGINE,HUM.REC.ANLOG 100 UNITS/ML SQ SCH ×2 (21:00)
[2021-07-13 00:40] VITALS: BP 129/58
[2021-07-13 04:08] VITALS: BP 115/58
[2021-07-13] MEDS: INSULIN LISPRO 100 UNITS/ML SQ PRN ×4 (05:54→21:28)
[2021-07-13 08:11] LABS: BASOPHILS % (AUTO) 0.3 % (0.0-2.0); HEMOGLOBIN 7.5 g/dL (13.5-17.5); LYMPHOCYTES # (AUTO) 2.1 K/uL (1.0-4.8); LYMPHOCYTES % (AUTO) 20.8 % (22.0-44.0); MEAN CORPUSCULAR HEMOGLOBIN 37.9 pg (26.0-34.0); MEAN CORPUSCULAR HGB CONC 36.3 G/dL (31.0-37.0); MEAN CORPUSCULAR VOLUME 105 fL (80-100); MONOCYTES # (AUTO) 1.3 K/uL (0.1-1.0); MONOCYTES % (AUTO) 12.9 % (2.0-9.0); NEUTROPHILS # (AUTO) 6.3 K/uL (1.8-7.7); PLATELET COUNT (AUTO) 119 K/uL (150-450); RED BLOOD CELL COUNT(AUTO) 1.98 MIL/uL (4.50-5.90); RED CELL DISTRIBUTION WIDTH 15.6 % (11.5-14.5)
[2021-07-13 08:16] LABS: CALCIUM, TOTAL 8.5 mg/dL (8.8-10.5); CREATININE 1.52 mg/dL (0.60-1.30); MAGNESIUM 1.8 mg/dL (1.80-2.40); PHOSPHORUS 2.6 mg/dL (2.5-4.9); POTASSIUM 4.7 mmol/L (3.5-5.1)
[2021-07-13] MEDS: SODIUM CHLORIDE 1 GM TABLET PO SCH ×2 (08:43→21:28)
[2021-07-13] MEDS: PANTOPRAZOLE SODIUM 40 MG DR TABLET PO SCH (08:43)
[2021-07-13] MEDS: MIDODRINE HCL 5 MG TABLET PO SCH ×3 (08:44→21:28)
[2021-07-13 08:45] VITALS: BP 109/56
[2021-07-13] MEDS: LACTULOSE 20 GM/30 ML SOLUTION UDCUP PO SCH ×2 (08:45→21:28)
[2021-07-13] MEDS: SODIUM ZIRCONIUM CYCLOSILICATE 5 GM POWDER PACKET PO SCH (08:47)
[2021-07-13 09:04] LABS: HEMATOCRIT 20.7 % (41-53)
[2021-07-13 14:17] LABS: GLUCOMETER DEV NAME(LOC) 5S.2B; GLUCOSE,POINT OF CARE 341 MG/DL (70-110)
[2021-07-13 14:17] LABS: GLUCOMETER DEV NAME(LOC) 5S.2B; GLUCOSE,POINT OF CARE 230 MG/DL (70-110)
[2021-07-13 17:22] LABS: GLUCOMETER DEV NAME(LOC) 5S.1; GLUCOSE,POINT OF CARE 357 MG/DL (70-110)
[2021-07-13 17:22] LABS: GLUCOMETER DEV NAME(LOC) 5S.1; GLUCOSE,POINT OF CARE 394 MG/DL (70-110)
[2021-07-13 18:01] LABS: GLUCOMETER DEV NAME(LOC) 5S.2B; GLUCOSE,POINT OF CARE 333 MG/DL (70-110)
[2021-07-13 19:38] VITALS: BP 93/51
[2021-07-13] MEDS: INSULIN GLARGINE,HUM.REC.ANLOG 100 UNITS/ML SQ SCH (21:27)
[2021-07-13] MEDS: MORPHINE SULFATE 2 MG/ML SYRINGE IVP PRN (21:29)
[2021-07-14 00:08] VITALS: BP 126/52
[2021-07-14 04:23] VITALS: BP 115/61
[2021-07-14] MEDS: INSULIN LISPRO 100 UNITS/ML SQ PRN ×3 (06:01→17:43)
[2021-07-14 07:22] VITALS: BP 120/57
[2021-07-14 08:16] LABS: BASOPHILS % (AUTO) 0.7 % (0.0-2.0); EOSINOPHILS % (AUTO) 2.7 % (1.0-6.0); HEMOGLOBIN 7.5 g/dL (13.5-17.5); LYMPHOCYTES # (AUTO) 2.1 K/uL (1.0-4.8); LYMPHOCYTES % (AUTO) 25.5 % (22.0-44.0); MEAN CORPUSCULAR HEMOGLOBIN 38.6 pg (26.0-34.0); MEAN CORPUSCULAR HGB CONC 36.3 G/dL (31.0-37.0); MEAN CORPUSCULAR VOLUME 106 fL (80-100); MONOCYTES # (AUTO) 1.1 K/uL (0.1-1.0); MONOCYTES % (AUTO) 13.7 % (2.0-9.0); NEUTROPHILS # (AUTO) 4.7 K/uL (1.8-7.7); NEUTROPHILS % (AUTO) 57.4 % (40.0-70.0); RED BLOOD CELL COUNT(AUTO) 1.95 MIL/uL (4.50-5.90); RED CELL DISTRIBUTION WIDTH 16.2 % (11.5-14.5)
[2021-07-14] MEDS: SODIUM CHLORIDE 1 GM TABLET PO SCH (08:25)
[2021-07-14] MEDS: MIDODRINE HCL 5 MG TABLET PO SCH ×2 (08:25→16:29)
[2021-07-14] MEDS: LACTULOSE 20 GM/30 ML SOLUTION UDCUP PO SCH (08:26)
[2021-07-14] MEDS: PANTOPRAZOLE SODIUM 40 MG DR TABLET PO SCH (08:26)
[2021-07-14 08:28] LABS: HEMATOCRIT 20.7 % (41-53)
[2021-07-14] MEDS: SODIUM ZIRCONIUM CYCLOSILICATE 5 GM POWDER PACKET PO SCH (08:32)
[2021-07-14] MEDS: INSULIN GLARGINE,HUM.REC.ANLOG 100 UNITS/ML SQ SCH (09:31)
[2021-07-14] MEDS: MORPHINE SULFATE 2 MG/ML SYRINGE IVP PRN (09:36)
[2021-07-14 10:54] VITALS: BP 114/50
[2021-07-14 11:08] LABS: PLATELET COUNT (AUTO) 117 K/uL (150-450)
[2021-07-14 11:47] LABS: CALCIUM, TOTAL 8.4 mg/dL (8.8-10.5); CREATININE 1.27 mg/dL (0.60-1.30); POTASSIUM 4.5 mmol/L (3.5-5.1)
[2021-07-14] MEDS ORDERED: NACL1 PO (13:53)
[2021-07-14] MEDS ORDERED: SODI5POW2 PO (13:53)
[2021-07-14] MEDS ORDERED: INSLAN SQ (13:53)
[2021-07-14 14:32] VITALS: BP 118/58
[2021-07-14 16:06] LABS: GLUCOMETER DEV NAME(LOC) 5S.2B; GLUCOSE,POINT OF CARE 326 MG/DL (70-110)
[2021-07-14 16:06] LABS: GLUCOMETER DEV NAME(LOC) 5S.2B; GLUCOSE,POINT OF CARE 274 MG/DL (70-110)
[2021-07-14 16:07] LABS: GLUCOMETER DEV NAME(LOC) 5S.1; GLUCOSE,POINT OF CARE 370 MG/DL (70-110)
[2021-07-15 06:31] LABS: GLUCOMETER DEV NAME(LOC) 5N.1C; GLUCOSE,POINT OF CARE 348 MG/DL (70-110)
== END 2021-07-14 18:15 | disposition home or self-care (01) | DRG 241 ==
LOC: EMS 18:01 → ICUN 07-09 05:08 → 5S 07-09 06:56
PROVIDERS: ADMIT Internal Medicine; ATTEND Internal Medicine
PROC: 0DJ08ZZ Inspection of Upper Intestinal Tract, Via Natural or Artificial Opening Endoscopic (ICD-10-PCS; principal; 2021-07-11 09:00)
DX: K29.71 Gastritis, unspecified, with bleeding (principal); K76.7 Hepatorenal syndrome; E11.10 Type 2 diabetes mellitus with ketoacidosis without coma; E43 Unspecified severe protein-calorie malnutrition; D68.9 Coagulation defect, unspecified; K76.6 Portal hypertension; N17.9 Acute kidney failure, unspecified; E87.1 Hypo-osmolality and hyponatremia; E86.9 Volume depletion, unspecified; E11.22 Type 2 diabetes mellitus with diabetic chronic kidney disease; D50.9 Iron deficiency anemia, unspecified; K31.89 Other diseases of stomach and duodenum; E87.5 Hyperkalemia; N18.30 Chronic kidney disease, stage 3 unspecified; K70.30 Alcoholic cirrhosis of liver without ascites; Z91.81 History of falling; Z68.22 Body mass index [BMI] 22.0-22.9, adult; Z87.19 Personal history of other diseases of the digestive system; Z87.11 Personal history of peptic ulcer disease; Z79.899 Other long term (current) drug therapy; Z88.0 Allergy status to penicillin; Z88.8 Allergy status to other drugs, medicaments and biological substances; Z68.20 Body mass index [BMI] 20.0-20.9, adult
CPT/HCPCS: 70450; 71046; 80048; 80053; 80076; 81001; 82140; 82248; 82271; 82533; 82570; 82962; 83036; 83615; 83735; 83930; 83935; 84100; 84156; 84300; 84443; 84540; 85014; 85018; 85025; 85610; 86850; 86900; 86901; 87081; 93005; 94640; 97162; 99291; C9113; G0378; J0610; J1815; J2250; J2270; J2704; J3010; J3411; J3430; J3475; J3480; J3490; J7030; J7050; Q9967; 36415-L1; 36415-TC; J7613